=== PATIENT | female | born 1985 | race Caucasian/White ===

== ENCOUNTER → 2019-11-05 13:16 | Outpatient (CLI) | payer OTHER, SELFPAY ==
--- NOTE | ~2019-11-05 | US_ITS ---
EXAMINATION: US transvaginal EXAM DATE: 11/05/2019 13:45 INDICATION: Bilateral adnexal pain. TECHNIQUE: Pelvic transvaginal sonogram was performed. There are multiple grayscale and Doppler imag es available for interpretation. There is no prior study for comparison. FINDINGS: Uterus measures 7.4 x 4.1 x 5.6 cm, and is morphologically normal. Endometrial stripe rose sures 4 mm, within normal limits. There is no free pelvic fluid. Right adnexa: The ovary measures 3.3 x 2.3 x 2.8 cm and is morphologically normal. Ovarian vascular f low confirmed. Left adnexa: The ovary measures 1.4 x 1.2 x 1.5 cm and is morphologically normal. Ovarian vascular fl ow confirmed. IMPRESSION: Unremarkable pelvic ultrasound exam. Reviewed, dictated and finalized at location B. K ATTENDANT
== END ==
PROVIDERS: PCP Family Medicine; Visit Provider Family Medicine
DX: R10.2 Pelvic and perineal pain (principal)
CPT/HCPCS: 76830

== ENCOUNTER 2020-04-24 07:13 | Outpatient (CLI) | payer OTHER, SELFPAY ==
--- NOTE | ~2020-04-24 | CT_ITS ---
EXAMINATION: CT abdomen pelvis w con INDICATION: Right lower quadrant pain, history of appendectomy TECHNIQUE: Computed tomographic images of the abdomen and pelvis were obtained after the administrati on of 100 cc of Omnipaque 350 intravenous contrast. The dose-length product (DLP) was 315.90 mGy-cm. Automated exposure control and iterative reconstruction technique were employed. COMPARISON: None available FINDINGS: Minimal dependent atelectasis is present in the lung bases. The heart size is normal. Bilat eral breast implants are noted. The liver, spleen, pancreas, gallbladder, and adrenal glands are norm al. The kidneys are unremarkable. No pathologically enlarged abdominal or pelvic lymph nodes are iden tified. There is no free intraperitoneal gas or evidence of bowel obstruction. The appendix is not id entified, consistent with history of appendectomy. There is a large volume of stool in the ascending and transverse colon. There is also some solid material in the nondilated distal small bowel. The vis ualized osseous structures are unremarkable. IMPRESSION: 1. Constipation. Reviewed, dictated and finalized at location A. IMPRESSION: 1. Constipation.
[2020-04-24 07:37] LABS: Estimated Glomerular Filt Rate > 60
== END 2020-04-24 07:14 | disposition home or self-care (01) ==
PROVIDERS: PCP Family Medicine; Visit Provider Family Medicine
DX: R10.31 Right lower quadrant pain (principal); K59.00 Constipation, unspecified
CPT/HCPCS: 36415; 74177; Q9967

== ENCOUNTER 2020-06-14 01:46 | Outpatient (CLI) | payer OTHER, SELFPAY ==
[2020-06-14 18:40] LABS: SARS-CoV-2 RNA PCR Negative
== END 2020-06-14 01:47 | disposition home or self-care (01) ==
LOC: ANHCOVIDDT 01:46
PROVIDERS: PCP Family Medicine; Visit Provider Internal Medicine Gastroenterology
DX: Z01.812 Encounter for preprocedural laboratory examination (principal); Z20.828 Contact with and (suspected) exposure to other viral communicable diseases
CPT/HCPCS: 87635; C9803; U0003

== ENCOUNTER 2020-06-16 01:45 | Day surgery (SDC) | payer OTHER, SELFPAY ==
[2020-06-08 13:30] VITALS: BMI 24.3
[2020-06-16 08:12] VITALS: BP 135/81; PULSE 92; RESP 18; TEMP 37.2; O2SAT 100
[2020-06-16] MEDS: LACTATED RINGERS 1,000 ML 150 ML IV CONT (08:23)
--- NOTE | 2020-06-16 08:23 | P.PNAN_ITS ---
Anes - Initial Pre Proc Eval Procedure: Operation Date: 06/16/20 09:30 Proposed Procedures p Colonoscopy - Jeffery Reina MD Date/Time: 06/16/20 08:23 Surgeon: Jeffery Reina MD Pre Op Diagnosis: Change In Bowel Habits Patient Data Age: 35 Gender: F Height: 5 ft 6 in Weight: 67.8 kg Last Vital Signs Temp 98.9 F 06/16/20 08:12 Pulse 92 06/16/20 08:12 Resp 18 06/16/20 08:12 BP 135/81 06/16/20 08:12 Pulse Ox 100 06/16/20 08:12 Allergies Allergy/AdvReac Type Severity Reaction Status Date / Time No Known Allergies Allergy Unknown Verified 06/16/20 08:11 Home Medications Medication Instructions Recorded Confirmed Type amlodipine 10 mg tablet 10 mg PO DAILY #90 tablet 04/18/20 06/08/20 Rx dicyclomine 10 mg capsule 10 mg PO TID PRN #30 cap 04/18/20 06/08/20 Rx ergocalciferol (vitamin D2) 50,000 unit PO WEEKLY 06/08/20 06/08/20 History [Vitamin D2] hydroxyzine HCl 25 mg PO HS 06/08/20 06/08/20 History Patient hx anesthesia problems: post op nausea/vomiting Family hx anesthesia problems: none PMFSH Social History Social History Smoking status: Never smoker Second hand tobacco smoke exposure: No Alcohol intake: former Drinks per week: 1 Substance use: never Substance use type: does not use, former substance user, marijuana, crack/cocaine, heroin, amphetamines, hallucinogens, tranquilizers, sedatives, opiates, painkillers, club/fashion designer drugs, inhalants, IV drugs, methamphetamine, prescription drug, unknown and other Living arrangements: with family Spiritual care concerns: No Anes - Eval Final PreProcedure Day of Procedure 06/16/20 08:23 Patient weight: normal Heart: regular rate and rhythm Lungs: clear to auscultation Airway: Mallampati scale class II Neurological: alert and oriented Last oral intake: >/= 8 hours ASA classification: II Emergent: no Anesthetic plan: proceed Anesthesia type and monitoring: general GIVS and standard monitoring Informed Consent: The patient's anesthetic plan and its attendant risks and benefits were discussed with the patient/family/POA. Questions were solicited and answers provided to the satisfaction of the patient/family/POA.
--- NOTE | 2020-06-16 08:28 | P.HP_ITS ---
History of Present Illness History of Present Illness Consent: Risks, benefits, and alternatives have been discussed and questions answered. Patient agrees to proceed with procedure. Chief complaint: Change In Bowel Habits Narrative: Kate Solis is a 35 year old female who has had Intermittent rectal bleeding and change in bowel habits. [facility] Social History Social History Smoking status: Never smoker Second hand tobacco smoke exposure: No Alcohol intake: former Drinks per week: 1 Substance use: never Substance use type: does not use, former substance user, marijuana, crack/cocaine, heroin, amphetamines, hallucinogens, tranquilizers, sedatives, opiates, painkillers, club/experience designer drugs, inhalants, IV drugs, methamphetamine, prescription drug, unknown and other Living arrangements: with family Spiritual care concerns: No Meds Home Medications and Allergies Home Medications Medication Instructions Recorded Confirmed Type amlodipine 10 mg tablet 10 mg PO DAILY #90 tablet 04/18/20 06/08/20 Rx dicyclomine 10 mg capsule 10 mg PO TID PRN #30 cap 04/18/20 06/08/20 Rx ergocalciferol (vitamin D2) 50,000 unit PO WEEKLY 06/08/20 06/08/20 History [Vitamin D2] hydroxyzine HCl 25 mg PO HS 06/08/20 06/08/20 History Allergies Allergy/AdvReac Type Severity Reaction Status Date / Time No Known Allergies Allergy Unknown Verified 06/16/20 08:11 Vital Signs Vital Signs - 24 hr 06/16/20 08:12 Temperature 37.2 C Pulse Rate 92 Respiratory Rate 18 Blood Pressure 135/81 Pulse Oximetry 100 Exam Resp: Auscultation: clear to auscultation bilaterally Cardio: Rate: regular rate Rhythm: regular rhythm GI: GI Palp: Yes Soft to palpation and No Tenderness to palpation present (GI) Assessment and Plan Assessment and plan (1) Change in bowel habits: Code(s): R19.4 - Change in bowel habit Status: Acute Assessment and Plan: Colonoscopy with possible biopsy or polypectomy or cautery or injection of substances.
[2020-06-16 08:49] VITALS: BP 103/54; PULSE 81; RESP 18; O2SAT 100
[2020-06-16 08:59] VITALS: BP 106/61; PULSE 73; RESP 21; O2SAT 100
[2020-06-16 09:09] VITALS: BP 106/61; PULSE 73; RESP 21; O2SAT 100
== END 2020-06-16 09:26 | disposition home or self-care (01) ==
PROVIDERS: PCP Family Medicine; Visit Provider Internal Medicine Gastroenterology
PROC: 0DJD8ZZ Inspection of Lower Intestinal Tract, Via Natural or Artificial Opening Endoscopic (ICD-10-PCS; CPT 45378; principal; 2020-06-16 09:30)
DX: R19.7 Diarrhea, unspecified (principal)
CPT/HCPCS: 45380; 87635; 88305; C9803; J2704; J7120; U0003

== ENCOUNTER 2020-10-22 06:38 | Emergency (ER) | payer OTHER, SELFPAY ==
[2020-10-22] VITALS (34 sets, daily range): BP systolic 121–144; BP diastolic 70–87; PULSE 77–105; RESP 13–20; TEMP 36.6; O2SAT 97–100
--- NOTE | ~2020-10-22 | XR_ITS ---
EXAMINATION: XR chest 2V DATE: 10/22/2020 07:03 INDICATION: Left-sided chest pain TECHNIQUE: PA and lateral views of the chest were obtained. COMPARISON: Chest radiograph dated 10/01/2013 FINDINGS: The lungs remain clear with no focal airspace opacities, pulmonary edema, pleural effusion or pneumot horax. The cardiomediastinal silhouette is normal. Lateral breast implants. Visualized bones are unre markable. IMPRESSION: 1. No acute cardiopulmonary disease. Reviewed, dictated and finalized at location A. HR DIVERSITY
--- NOTE | 2020-10-22 06:42 | ECG_ITS ---
Measurements Intervals [place] Rate: 93 P: 13 [place]: 154 QRS: 81 QRSD: 79 T: 35 QT: 338 QTc: 422 Interpretive Statements SINUS RHYTHM NONSPECIFIC ST & T-WAVE ABNORMALITY- ANTEROLAT/INF LEADS BASELINE ARTIFACT- II, III, AVR, AVL, AVF BORDERLINE ECG Electronically Signed On 10-22-2020 6:54:56 JOB COUNSELOR by Mark Clay D.O.
[2020-10-22 07:03] LABS: Basophils Percent Auto 0.4 % (0.2-1.2); Eosinophils Absolute Auto 0.1 K/mm3 (0-0.3); Eosinophils Percent Auto 1.1 % (0-4.4); Hematocrit 43.4 % (37.0-47.0); Hemoglobin 14.4 g/dL (12.0-15.0); Immature Granulocyte Absolute 0.03 K/mm3 (0.00-0.031); Immature Granulocyte Percent A 0.4 % (0-0.5); Lymphocytes Absolute Auto 2.12 K/mm3 (0.9-3.2); Lymphocytes Percent Auto 27.9 % (18.3-44.2); Mean Corpuscular HGB Conc 33.2 g/dl (32-36); Mean Corpuscular Volume 84.3 fl (80-100); Mean Platelet Volume 10.1 fl (7.4-10.4); Monocytes Absolute Auto 0.6 K/mm3 (0.1-0.6); Monocytes Percent Auto 7.5 % (2.6-8.5); Neutrophils Absolute Auto 4.8 K/mm3 (1.3-6.7); Neutrophils Percent Auto 62.7 % (45.5-73.1); Platelet Count Result 282 k/mm3 (150-375); Red Blood Count 5.15 M/mm3 (4.2-5.4); Red Cell Distribution Width 12.2 % (11.5-14.5); White Blood Count 7.6 K/mm3 (4.5-10.0)
[2020-10-22 07:11] LABS: Prothrombin Time 13.3 Seconds (11.1-14.7)
[2020-10-22 07:12] LABS: Partial Thromboplastin Time 30.1 SECONDS (22.3-36.8)
[2020-10-22 07:14] LABS: Anion Gap 5 mmol/L (8-16); Blood Urea Nitrogen 14 mg/dL (7-17); Calcium 8.9 mg/dL (8.4-10.2); Carbon Dioxide 24 mmol/L (22-30); Chloride 109 mmol/L (98-107); Estimated CRCL calculation 80 ml/min; Estimated Glomerular Filt Rate > 60; Glucose 100 mg/dL (65-105); Potassium 3.3 mmol/L (3.4-5.0); Sodium 138 mmol/L (137-145)
[2020-10-22 07:26] LABS: Troponin I < 0.012 ng/mL (0.000-0.034)
[2020-10-22 07:31] LABS: D Dimer 0.27 ug/mL (<0.48)
--- NOTE | 2020-10-22 07:37 | ED.CHESTPAIN ---
HPI - Chest Pain General Chief Complaint: Chest Pain Stated Complaint: chest pain since 8pm Time Seen by Provider: 10/22/20 07:05 Source: patient Mode of arrival: ambulatory Limitations: no limitations History of Present Illness HPI narrative: Patient is a 35 year old female with history of anxiety and hypertension who presens for evaluation of left lower lateral chest pain. She states this pain started 8 pm last night. She describes pain as dull ache and it is intermittent. She reports it radiates up to left shoulder. She has not noticed any exacerbating factors. She tried taking tylenol, blood pressure medication and hydroxyzine with out relief. She reports her pain is 2/10. She denies associated nausea, vomiting, fever, cough, shortness of breath or urinary symptoms. She reports intermittent left upper abdominal pain . Related Data Home Medications Medication Instructions Recorded Confirmed ergocalciferol (vitamin D2) 50,000 unit PO WEEKLY 06/08/20 06/08/20 [Vitamin D2] hydroxyzine HCl 25 mg PO HS 06/08/20 06/08/20 Allergies Allergy/AdvReac Type Severity Reaction Status Date / Time No Known Allergies Allergy Unknown Verified 08/02/20 16:04 Review of Systems Review of Systems: All systems reviewed & are unremarkable except as noted in HPI and below PMFSH Past Medical History Medical History (Updated 10/22/20 @ 11:26 by Gogo Hart MD) Hypertension Surgical History Surgical History (Updated 10/22/20 @ 07:43 by Gogo Hart MD) Hx of appendectomy Social History Social History Smoking status: Never smoker Second hand tobacco smoke exposure: No Alcohol intake: former Drinks per week: 1 Substance use: never Substance use type: does not use, former substance user, marijuana, crack/cocaine, heroin, amphetamines, hallucinogens, tranquilizers, sedatives, opiates, painkillers, club/interactive designer drugs, inhalants, IV drugs, methamphetamine, prescription drug, unknown and other Spiritual care concerns: No Exam Const: General: no acute distress and alert Orientation/consciousness: patient oriented x3 HENMT: Head: normocephalic and atraumatic Face and sinus: face symmetric Mouth: Yes Normal oral and palatal mucosa present, Yes lip normal, Yes oropharynx normal and Yes moist mucous membranes Eyes: EOM: EOMs intact bilaterally Chest: Chest palpation & inspection: normal inspection of the chest and no tenderness Resp: Effort & Inspection: normal respiratory effort and no retractions Auscultation: clear to auscultation bilaterally Cardio: Rate: regular rate Rhythm: regular rhythm Heart sounds: no murmurs GI: GI Palp: Yes Soft to palpation, No Tenderness to palpation present (GI) and No Guarding due to palpation present (GI) Auscultation: normal bowel sounds Skin: General skin exam: normal color Rashes: no rashes Neuro: General: patient oriented x3 and moves all extremities Course Reevaluation(s) Reevaluation #1: I Discussed patient that labs are unremarkable. Her symptoms are atypical and not anginal . She will be treated for UTI. Date: 10/22/20 Time: 11:22 Vital Signs Vital signs: Vital Signs Temperature 97.9 F 10/22/20 06:43 Pulse Rate 105 H 10/22/20 06:43 Respiratory Rate 17 10/22/20 06:43 Blood Pressure 144/86 H 10/22/20 06:43 Pulse Oximetry 100 10/22/20 06:43 Temperature 97.9 F 10/22/20 06:43 Pulse Rate 87 10/22/20 11:17 Respiratory Rate 16 10/22/20 11:17 Blood Pressure 125/80 10/22/20 11:16 Pulse Oximetry 99 10/22/20 11:17 MDM - Chest Pain Lab Data Attestation: I reviewed the patient's lab results. Result diagrams: 10/22/20 06:54 10/22/20 06:54 Labs: Lab Results 10/22/20 10/22/20 10/22/20 Range/Units 06:54 06:54 06:54 WBC 7.6 (4.5-10.0) K/mm3 RBC 5.15 (4.2-5.4) M/mm3 Hgb 14.4 (12.0-15.0) g/dL Hct 43.4
[2020-10-22 08:12] LABS: Add Urine Microscopic? YES; Appearance Urine Clear (Clear); Bacteria Urine Trace /hpf; Bilirubin Urine Negative (Negative); Blood Urine Negative (Negative); Color Urine Colorless (Yellow); Glucose Urine UA Negative (Negative); Ketones Urine Negative (Negative); Leukocyte Esterase Ur 2+ LEU/UL (Negative); Mucus Urine Rare /lpf; Nitrate Urine Negative (Negative); Protein Urine Negative (Negative); RBC Urine 0-2 /hpf (0-2); Specific Grav Ur 1.008 (1.001-1.035); Squamous Epithelial Cell Urine Occasional /hpf (Few); Urobilinogen Urine Negative mg/dL (<2.0)
[2020-10-22 10:05] LABS: Troponin I < 0.012 ng/mL (0.000-0.034)
== END 2020-10-22 11:57 | disposition home or self-care (01) ==
PROVIDERS: Emergency Medicine; Emergency Provider General Practice; PCP Family Medicine
DX: R07.89 Other chest pain (principal); N39.0 Urinary tract infection, site not specified; I10 Essential (primary) hypertension; R94.31 Abnormal electrocardiogram [ECG] [EKG]
CPT/HCPCS: 36415; 71046; 80048; 81001; 81025; 84484; 85025; 85380; 85610; 85730; 87086; 93005; 99284

== ENCOUNTER 2021-03-20 13:00 | Outpatient (RCR) | payer OTHER, SELFPAY ==
--- NOTE | 2021-02-20 16:34 | PTOPEVAL ---
INITIAL PHYSICAL THERAPY EVALUATION AND PLAN OF CARE Thank you for referring Kate Solis to [facility].? Kate is scheduled to be seen for physical therapy? 1x/week for 5 weeks. Please review, sign, date and return this plan of care TARAH. I agree with and certify that the following plan of care is medically necessary. Referring Physician Date Admitting Provider: Attending Provider: Jayshree Morales MD Referring Provider: *PT Outpatient Evaluation Start: 02/20/21 14:46 Freq: Status: Active Protocol: Document 02/20/21 14:40 ÁNGEL (Rec: 02/20/21 16:32 ÁNGEL [email or web address]) Therapy Assessment Status Assessment Status Assessment Status Evaluation Outpatient Past Medical History Past Medical History Source of Past Medical History Family/Significant Other Neurological History Hx Neurological Disorders No Significant History Cardiovascular History Hx Hypertension Yes Respiratory History Hx Bronchitis Yes Gastrointestinal History Hx Appendectomy Yes Hx Hemorrhoids Yes Hx Irritable Bowel Yes Genitourinary History Hx Genitourinary Disorders No Significant History Musculoskeletal History Hx Fractures Yes: LT WRIST Hematological History Hx Hematological Disorders No Significant History Endocrine History Hx Endocrine Disorders No Significant History HEENT History Hx HEENT Disorders No Significant History Integumentary History Hx Skin Disorders No Significant History Reproductive History Hx Other Reproductive Disorders Yes: CURRENTLY ON DEPO PROVERA INJECTION, BILATERAL BREAST AUGMENTATION Psychosocial History Hx Anxiety Yes Pain History History of Any Previous or Ongoing No Significant History Instance of Pain Anesthesia History Hx Post-Op Nausea/Vomiting Yes Evaluation Information Problem Diagnosis pelvic floor pain Onset earlier in 2020 Subjective Information Kate reports no injury, Query Text:As Reported By Patient/ reason for pelvic floor pain. Family Notices discomfort pain from pelvic floor when sitting at times, also when lying down - tends to lie on R side. of son 04/09/19 - 8 lbs. No difficulty with labor and delivery - induced and there was some tearing. Was given valium suppositories - has used them twice. Discomfort present with palpation by OB
--- NOTE | 2021-03-20 14:54 | PTOPEVAL ---
PHYSICAL THERAPY DISCHARGE SUMMARY Thank you for referring Kate Solis to [facility].? Kate has been seen in PT x 5 visits. Goals set have been met and she is ready to continue on her home with HEP. I agree with Kate's discharge from PT. Referring Physician Date Admitting Provider: Attending Provider: Jayshree Morales MD Referring Provider: Therapy Assessment Status Assessment Status Assessment Status Discharge Evaluation Information Problem Diagnosis pelvic floor pain Subjective Information Kate states that she is Query Text:As Reported By Patient/ doing meditation at home and Family has encorporated butterfly positioning for reducing pelvic floor pain. She states that she may have overdone the pelvic floor strengthening exercises with her regular work out activities as she is having some low level vaginal pain. Urinary leakage with jump jacks has decreased significantly and no leakage with cough or sneeze. Pain Assessment Timing of Pain Assessment Timing of Pain Assessment Assessment Pain Scale Pain Scale Used Numeric (1 - 10) Self Report Pain Assessment Pelvis Reported Pain Level 2 Pain Description Aching Lowest Pain Intensity 0 Greatest Pain Intensity 2 Pelvic Health Evaluation Pelvic Floor Assessment Permission Received for External/ Yes Internal Perineal Exam Sustained Levator Ani Strength 4/5 Quick Levator Ani Contraction in 15 9 Seconds Rehab Teaching Rehab Teaching Teaching Topic Rehab Teaching Topic Components Exercise,Home Program As Pertains To Technique Recipient Patient Learning Preferences Audio,Demonstration,Discussion ,One-on-One Instruction,Visual ,Written Barriers to Learning None Readiness to Learn Excellent Response Returns Demonstration, Verbalizes Understanding Method Discussion,Handout,One-On-One Instruction,Written Instruction Additional Rehab Teaching Comments reinforced to continue to incorporate levator ani strengthening with workout PT Clinical Summary Clinical Summary Protocol: PTEVCODE PT Clinical Summary Vulvar Pain Func
== END 2021-05-07 11:46 | disposition home or self-care (01) ==
LOC: ANHPT 13:00
PROVIDERS: PCP Family Medicine; Visit Provider Obstetrics & Gynecology Gynecology
DX: R10.2 Pelvic and perineal pain (principal)
CPT/HCPCS: 97110; 97140; 97162

== ENCOUNTER → 2021-10-22 08:55 | Outpatient (CLI) | payer BC, SELFPAY ==
--- NOTE | ~2021-10-22 | US_ITS ---
US breast BI complete INDICATION: Possible implant rupture. No current patient problems. TECHNIQUE: Dedicated bilateral complaint breast ultrasound COMPARISON: Ultrasound dated 06/23/2019 FINDINGS: The breasts are there are bilateral breast implants with normal heterogeneous appearance. N o discontinuity of the capsule. The breasts are composed of normal heterogeneous echotexture without focal solid or cystic mass. If there is continuing concern for implant rupture, further evaluation wi th MRI is recommended. IMPRESSION: 1: Normal bilateral breast ultrasound. BI-RADS CATEGORY 1 - NEGATIVE Reviewed, dictated and finalized at location A. AL WORK SPECIALIST
== END ==
DX: Z41.1 Encounter for cosmetic surgery (principal)
CPT/HCPCS: 76641

== ENCOUNTER 2022-01-10 07:42 | Outpatient (CLI) | payer BC, SELFPAY ==
--- NOTE | ~2022-01-10 | US_ITS ---
EXAMINATION: US abdomen complete EXAM DATE: 01/10/2022 08:50 INDICATION: R79.89 - Other specified abnormal findings of blood chemi... TECHNIQUE: Multiple grayscale and Doppler images of the complete abdomen were obtained (by a technolo gist who performed the scan) and subsequently reviewed. There is no prior study for comparison. FINDINGS: The abdominal aorta is normal in caliber. Visualized portion IVC is patent. The pancreatic head a nd body are normal in appearance. The pancreatic tail is not visualized. The liver has normal echogenicity and contour. There are no focal liver lesions identified. There is no evidence of intrahepatic biliary duct dilation. Portal venous flow was seen in the hepatopedal , normal direction and has normal Doppler waveform. Common bile duct measures 3 mm, which is normal. The gallbladder wall is normal in thickness, with ex pected amount of distention. No sonographic evidence of pericholecystic fluid. There is no cholelit hiases. Technologist performing exam reports patient did not demonstrate sonographic Zuluaga's sign. Please note that this sign is less reliable in patients who have received pain medication. Right kidney: There is normal contour and echogenicity. It measures 11.0 x 4.9 x 4.7 centimeters. There are no focal renal lesions identified. There is no hydronephrosis. Left kidney: There is normal contour and echogenicity. It measures 11.7 x 5.4 x 5.6 centimeters. T here are no focal renal lesions identified. There is no hydronephrosis. The spleen measures 9.5 centimeters and is morphologically normal. IMPRESSION: 1. Unremarkable complete abdominal ultrasound exam. Reviewed, dictated and finalized at location A.
== END 2022-01-10 07:43 | disposition home or self-care (01) ==
LOC: ANHIMG 07:46
PROVIDERS: PCP Family Medicine; Visit Provider Physician Assistant
DX: R79.89 Other specified abnormal findings of blood chemistry (principal)
CPT/HCPCS: 76700

== ENCOUNTER → 2022-02-11 10:39 | Outpatient (CLI) | payer BC, SELFPAY ==
--- NOTE | ~2022-02-11 | US_ITS ---
EXAMINATION: US transvaginal DATE: 02/11/2022 11:16 INDICATION: Pelvic pain Comparison:Ultrasound dated 11/05/2019 TECHNIQUE: Multiple endovaginal sonographic images of the pelvis performed. FINDINGS: The uterus measures 7.1 x 3.7 x 4.5 cm. The endometrial complex measures 2 mm. The right ovary measures 2.2 x 1.7 x 2.1 cm and the left ovary measures 2.7 x 1.5 x 2.2 cm. There ar e small follicles in each ovary. Normal doppler signal in both ovaries. There is no free fluid in the pelvis. There are no abnormal masses seen on either side. IMPRESSION: 1. Unremarkable pelvic ultrasound. Reviewed, dictated and finalized at location A.
== END ==
PROVIDERS: PCP Family Medicine; Visit Provider Nurse Practitioner
DX: R10.2 Pelvic and perineal pain (principal)
CPT/HCPCS: 76830

== ENCOUNTER 2022-10-29 09:12 | Outpatient (CLI) | payer BC, SELFPAY ==
[2022-10-29 09:47] LABS: Appearance Urine Slightly Cloudy (Clear); Bilirubin Urine Negative (Negative); Blood Urine Negative (Negative); Color Urine Yellow (Yellow); Glucose Urine UA Negative (Negative); Ketones Urine Negative (Negative); Leukocyte Esterase Ur 3+ LEU/UL (Negative); Nitrate Urine Negative (Negative); Protein Urine Trace mg/dL (Negative); Specific Grav Ur 1.025 (1.001-1.035); Urobilinogen Urine 0.2 mg/dL (<2.0)
[2022-10-29 09:50] LABS: Bacteria Urine Trace /hpf; Mucus Urine Rare /lpf; Squamous Epithelial Cell Urine Many /hpf (Few); WBC Urine 31-50 /hpf
[2022-10-29 09:57] LABS: Add Urine Microscopic? YES
[2022-10-29 10:04] LABS: Alanine Aminotransferase 28 U/L (6-35); Albumin Level 4.7 g/dL (3.5-5.1); Alkaline Phosphatase 58 U/L (38-126); Anion Gap 5 mmol/L (8-16); Aspartate Amino Transferase 27 U/L (14-36); Bilirubin,Total 0.6 mg/dL (0.2-1.3); Blood Urea Nitrogen 14 mg/dL (7-17); CRP < 0.5 mg/dL (<1.0); Calcium 8.9 mg/dL (8.4-10.2); Carbon Dioxide 25 mmol/L (22-30); Chloride 105 mmol/L (98-107); Estimated Glomerular Filt Rate > 60; Glucose 90 mg/dL (65-110); Potassium 3.9 mmol/L (3.4-5.0); Sodium 135 mmol/L (137-145)
[2022-10-29 10:09] LABS: Erythrocyte Sedimentation Rate 12 mm/hr (0-20)
[2022-11-02 16:08] LABS: Gliadin AB, IgG <1.0 U/mL (<15.0); TTG IGA AB <1.0 U/mL (<15.0)
== END 2022-10-29 09:13 | disposition home or self-care (01) ==
LOC: ANHLAB 09:14
PROVIDERS: PCP Family Medicine; Visit Provider Nurse Practitioner
DX: R10.13 Epigastric pain (principal); R11.0 Nausea; K92.1 Melena; K21.9 Gastro-esophageal reflux disease without esophagitis
CPT/HCPCS: 36415; 80053; 81001; 83516; 85652; 86140; 86255; 87086; 87088

== ENCOUNTER 2022-11-04 05:12 | Emergency (ER) | payer BC, SELFPAY ==
[2022-11-04] VITALS (35 sets, daily range): BP systolic 117–157; BP diastolic 73–96; PULSE 69–99; RESP 10–26; TEMP 36.8; O2SAT 93–100
--- NOTE | ~2022-11-04 | XR_ITS ---
Clinical Indication: Chest pain PA and lateral views of the chest: Comparison: 10/22/2020 Findings: The lungs are clear, without evidence of focal consolidation or pleural effusion. Cardiome diastinal silhouette is within normal limits. Bones and soft tissues are unremarkable. Impression: Normal chest. Reviewed, dictated and finalized at [facility]. Y RIDER Impression: Normal chest.
--- NOTE | 2022-11-04 05:13 | ECG_ITS ---
Measurements Intervals [place] Rate: 102 P: 60 [place]: 149 QRS: 73 QRSD: 86 T: 35 QT: 339 QTc: 443 Interpretive Statements SINUS TACHYCARDIA NONSPECIFIC ST & T-WAVE ABNORMALITY ABNORMAL RHYTHM ECG COMPARED TO ECG 10/22/2020 06:47:25 NO SIGNIFICANT DIFFERENCE Electronically Signed On 11-04-2022 12:09:[address] COMMISSIONER by Jamie Mishra M.D.
[2022-11-04 05:29] LABS: Basophils Percent Auto 0.3 % (0.2-1.2); Eosinophils Absolute Auto 0.2 K/mm3 (0-0.3); Eosinophils Percent Auto 1.9 % (0-4.4); Hematocrit 43.7 % (37.0-47.0); Hemoglobin 14.5 g/dL (12.0-15.0); Immature Granulocyte Absolute 0.03 K/mm3 (0.00-0.031); Immature Granulocyte Percent A 0.4 % (0-0.5); Lymphocytes Absolute Auto 2.48 K/mm3 (0.9-3.2); Lymphocytes Percent Auto 31.8 % (18.3-44.2); Mean Corpuscular HGB Conc 33.2 g/dl (32-36); Mean Corpuscular Volume 84.4 fl (80-100); Mean Platelet Volume 9.8 fl (7.4-10.4); Monocytes Absolute Auto 0.6 K/mm3 (0.1-0.6); Monocytes Percent Auto 7.6 % (2.6-8.5); Neutrophils Absolute Auto 4.5 K/mm3 (1.3-6.7); Platelet Count Result 314 k/mm3 (150-375); Red Blood Count 5.18 M/mm3 (4.2-5.4); Red Cell Distribution Width 12.3 % (11.5-14.5); White Blood Count 7.8 K/mm3 (4.5-10.0)
[2022-11-04 05:40] LABS: Alanine Aminotransferase 25 U/L (6-35); Albumin Level 5.1 g/dL (3.5-5.1); Alkaline Phosphatase 59 U/L (38-126); Anion Gap 10 mmol/L (8-16); Aspartate Amino Transferase 26 U/L (14-36); Bilirubin,Total 0.6 mg/dL (0.2-1.3); Blood Urea Nitrogen 12 mg/dL (7-17); Calcium 9.4 mg/dL (8.4-10.2); Carbon Dioxide 23 mmol/L (22-30); Chloride 106 mmol/L (98-107); Estimated CRCL calculation 78 ml/min; Estimated Glomerular Filt Rate > 60; Glucose 115 mg/dL (65-110); Lipase 148 U/L (23-300); Potassium 3.4 mmol/L (3.4-5.0); Sodium 139 mmol/L (137-145)
[2022-11-04 05:44] LABS: INR 1.1; Partial Thromboplastin Time 30.7 SECONDS (22.3-36.8); Prothrombin Time 13.9 Seconds (11.1-14.7)
[2022-11-04 05:52] LABS: Troponin I < 0.012 ng/mL (0.000-0.034)
--- NOTE | 2022-11-04 06:00 | ED.GENADULT ---
HPI - General Adult General Chief complaint: Chest Pain <Baljeet Still MD - Last Filed: 11/04/22 06:09> Stated complaint: chest pain that radiates into shoulder and arm <Baljeet Still MD - Last Filed: 11/04/22 06:09> Time Seen by Provider: 11/04/22 05:26 <Baljeet Still MD - Last Filed: 11/04/22 06:09> History of Present Illness HPI narrative: Patient a 37-year-old female who presents emerged department with chief complaint of chest pain. Patient reports that she has pain that starts in her left shoulder goes up into her neck and then extends down into her upper chest. The patient states the pain is sharp reports the pain is worse with movement and worse with palpation. Patient denies fever denies shortness of breath. <Baljeet Still MD - Last Filed: 11/04/22 06:09> Patient a 37-year-old female who presents to the emergency department with chief complaint of chest pain. Patient reports that she has pain that starts in her left shoulder goes up into her neck and then extends down into her upper chest. The patient states the pain is sharp reports the pain is worse with movement and worse with palpation. Patient denies fever denies shortness of breath. <David Quiñones MD - Last Filed: 11/04/22 18:04> Related Data Home medications: Home Medications Medication Instructions Recorded Confirmed ergocalciferol (vitamin D2) 1,250 50,000 unit PO WEEKLY 06/08/20 10/29/22 mcg (50,000 unit) capsule (Vitamin D2) hydroxyzine HCl 25 mg tablet 25 mg PO HS 06/08/20 10/29/22 spironolactone 100 mg tablet 100 mg PO DAILY 06/05/21 10/29/22 medroxyprogesterone 150 mg/mL 150 mg IM [id number] 12/27/21 10/29/22 intramuscular suspension (Depo-Provera) <Baljeet Still MD - Last Filed: 11/04/22 06:09> Allergies/adverse reactions: Allergies Allergy/AdvReac Type Severity Reaction Status Date / Time No Known Allergies Allergy Unknown Verified 11/04/22 05:13 <Baljeet Still MD - Last Filed: 11/04/22 06:09> Review of Systems Review of Systems: A 10 system review of systems was completed on the patient and is negative except for what is stated in the HPI. Nursing and ancillary documentation was reviewed. <Baljeet Still MD - Last Filed: 11/04/22 06:09> PMFSH Past Medical History Medical History: Medical History Abdominal bloating Constipation Dark stools Epigastric burning sensation GERD (gastroesophageal reflux disease) Hematochezia Hypertension Nausea Rectal pain <Baljeet Still MD - Last Filed: 11/04/22 06:09> Surgical History Surgical History: Surgical History Hx of appendectomy <Baljeet Still MD - Last Filed: 11/04/22 06:09> Family History Family History: Family History Mother Hypertension Hyperlipidemia Father Hypertension Hyperlipidemia Grandparent Hyperlipidemia Hypertension Skin cancer Esophageal cancer Grandparent Arthritis <Baljeet Still MD - Last Filed: 11/04/22 06:09> Social History Social History: Social History Smoking status: Never smoker Second hand tobacco smoke exposure: No Alcohol intake: former Substance use: never Substance use type: does not use Living arrangements: with family Spiritual care concerns: No <Baljeet Still MD - Last Filed: 11/04/22 06:09> Exam Narrative: GENERAL: Well-appearing, well-nourished, and in no acute distress. HEAD: Normocephalic, atraumatic. EYES: PERRLA and EOMI. ENT: Nares clear, no rhinorrhea or epistaxis. Mucous membranes moist. NECK: Supple. Tenderness to palpation in the left neck and left shoulder CHEST: Cl
[2022-11-04] MEDS: KETOROLAC 15 MG/ML VIAL (*BKC) IV PUSH (06:28)
[2022-11-04 09:43] LABS: Troponin I < 0.012 ng/mL (0.000-0.034)
== END 2022-11-04 10:09 | disposition home or self-care (01) ==
PROVIDERS: Emergency Provider Emergency Medicine; PCP Family Medicine
DX: R07.9 Chest pain, unspecified (principal); I10 Essential (primary) hypertension; K21.9 Gastro-esophageal reflux disease without esophagitis; R00.0 Tachycardia, unspecified; R94.31 Abnormal electrocardiogram [ECG] [EKG]
CPT/HCPCS: 36415; 71046; 80053; 83690; 84484; 85025; 85610; 85730; 93005; 96374; 99284; J1885

== ENCOUNTER 2022-11-30 01:46 | Emergency (ER) | payer BC, SELFPAY ==
[2022-11-30] VITALS (17 sets, daily range): BP systolic 121–143; BP diastolic 59–80; PULSE 100–125; RESP 15–22; O2SAT 96–100
--- NOTE | ~2022-11-30 | XR_ITS ---
EXAMINATION: XR chest 1V portable DATE: 11/30/2022 03:36 INDICATION: Chest pain TECHNIQUE: frontal view of the chest was obtained. COMPARISON: Chest radiograph dated 11/04/[address] dated 11/30/22 FINDINGS: The lungs are clear with no focal airspace opacities, pulmonary edema, pleural effusion or pneumothor ax. The cardiomediastinal silhouette is normal. Visualized bones and soft tissues are unremarkable. IMPRESSION: 1. Normal chest radiograph. Reviewed, dictated and finalized at location A. AND BLOWER OPERATOR IMPRESSION: 1. Normal chest radiograph.
--- NOTE | ~2022-11-30 | CT_ITS ---
EXAMINATION: CTA chest PE protocol DATE: 11/30/2022 03:43 INDICATION: Midsternal chest pain, tachycardia and nausea TECHNIQUE: Computed tomography (CT) pulmonary angiogram of the chest was performed with 100 mL Omnipa que-350 intravenous contrast. Additional 3D reconstructions utilizing coronal maximum intensity proje ction (MIP) were performed. Automated exposure control and iterative reconstruction technique were em ployed. The dose-length product was 219.63 mGy-cm. COMPARISON: None FINDINGS: Good contrast opacification of the pulmonary arteries. There is mild streak artifact from dense contr ast in the superior vena cava and right atrium. Mild scattered respiratory motion artifact. Together this only mildly decreases sensitivity in some of the smaller subsegmental pulmonary arteries. No pul monary embolism. No pneumonia, pulmonary edema or other pulmonary infiltrates. No pleural effusion or pneumothorax. Heart size is normal. No pericardial effusion. Thoracic aorta is normal in caliber wit h no dissection. No pathologically enlarged thoracic lymphadenopathy. Visualized upper abdomen and luisa ulises are unremarkable. IMPRESSION: 1. No pulmonary embolism or other acute cardiopulmonary disease. Reviewed, dictated and finalized at location A. ROUTER
--- NOTE | 2022-11-30 02:00 | ECG_ITS ---
Measurements Intervals [place] Rate: 102 P: 43 [place]: 158 QRS: 71 QRSD: 82 T: 40 QT: 324 QTc: 423 Interpretive Statements SINUS TACHYCARDIA BASELINE ARTIFACT- II, III, AVF BORDERLINE ECG COMPARED TO ECG 11/04/2022 05:20:28 NO SIGNIFICANT CHANGES Electronically Signed On 11-30-2022 6:57:30 THRASHER FEEDER by Mark Clay D.O.
[2022-11-30 02:52] LABS: Basophils Percent Auto 0.5 % (0.2-1.2); Eosinophils Absolute Auto 0.2 K/mm3 (0-0.3); Eosinophils Percent Auto 2.6 % (0-4.4); Hematocrit 39.1 % (37.0-47.0); Immature Granulocyte Absolute 0.02 K/mm3 (0.00-0.031); Immature Granulocyte Percent A 0.3 % (0-0.5); Lymphocytes Absolute Auto 2.33 K/mm3 (0.9-3.2); Lymphocytes Percent Auto 35.9 % (18.3-44.2); Mean Corpuscular HGB Conc 33.2 g/dl (32-36); Mean Corpuscular Hemoglobin 27.9 pg (26-34); Mean Corpuscular Volume 83.9 fl (80-100); Mean Platelet Volume 10.3 fl (7.4-10.4); Monocytes Absolute Auto 0.6 K/mm3 (0.1-0.6); Monocytes Percent Auto 9.1 % (2.6-8.5); Neutrophils Absolute Auto 3.4 K/mm3 (1.3-6.7); Neutrophils Percent Auto 51.6 % (45.5-73.1); Platelet Count Result 280 k/mm3 (150-375); Red Blood Count 4.66 M/mm3 (4.2-5.4); Red Cell Distribution Width 12.6 % (11.5-14.5); White Blood Count 6.5 K/mm3 (4.5-10.0)
[2022-11-30 03:02] LABS: INR 1.1; Prothrombin Time 13.5 Seconds (11.1-14.7)
[2022-11-30 03:03] LABS: Partial Thromboplastin Time 30.7 SECONDS (22.3-36.8)
[2022-11-30 03:05] LABS: Alanine Aminotransferase 21 U/L (6-35); Albumin Level 4.6 g/dL (3.5-5.1); Alkaline Phosphatase 51 U/L (38-126); Anion Gap 8 mmol/L (8-16); Aspartate Amino Transferase 24 U/L (14-36); Bilirubin,Total 0.4 mg/dL (0.2-1.3); Blood Urea Nitrogen 21 mg/dL (7-17); Calcium 8.9 mg/dL (8.4-10.2); Carbon Dioxide 21 mmol/L (22-30); Chloride 106 mmol/L (98-107); Estimated CRCL calculation 70 ml/min; Estimated Glomerular Filt Rate > 60; Glucose 106 mg/dL (65-110); Lipase 206 U/L (23-300); Magnesium 2.1 mg/dL (1.6-2.3); Potassium 3.5 mmol/L (3.4-5.0); Sodium 135 mmol/L (137-145)
[2022-11-30 03:06] LABS: Lactic Acid Reflex 0.8 mmol/L (0.7-2.0)
[2022-11-30 03:14] LABS: Influenza A QL RT-PCR Negative (Negative); Influenza B QL RT-PCR Negative (Negative); SARS-CoV-2 RNA PCR Negative
[2022-11-30 03:17] LABS: NT Pro B Type Natriuretic Pept < 20 pg/mL (19.9-100); Troponin I < 0.012 ng/mL (0.000-0.034)
--- NOTE | 2022-11-30 03:18 | ED.GENADULT ---
HPI - General Adult General Chief complaint: Chest Pain Stated complaint: chest pain Time Seen by Provider: 11/30/22 01:53 History of Present Illness HPI narrative: Patient is a 37-year-old female who presents the emergency department with chief complaint of chest pain. Patient reports that this evening around 12:30 AM she had sudden onset of chest discomfort. The patient states that sharp reports that she felt as though her heart was racing and reports that was not improved by anything. The patient reports that this is different from any other episode she has had before in the patient reports she has history of hypertension and reflux. Patient also reports history of anxiety Related Data Home Medications Medication Instructions Recorded Confirmed ergocalciferol (vitamin D2) 1,250 50,000 unit PO DIRECTED 06/08/20 11/22/22 mcg (50,000 unit) capsule (Vitamin D2) hydroxyzine HCl 25 mg tablet 25 mg PO HS 06/08/20 11/22/22 spironolactone 100 mg tablet 100 mg PO DAILY 06/05/21 11/22/22 medroxyprogesterone 150 mg/mL 150 mg IM [id number] 12/27/21 11/22/22 intramuscular suspension (Depo-Provera) ondansetron HCl 4 mg tablet mg 11/30/22 Allergies Allergy/AdvReac Type Severity Reaction Status Date / Time No Known Allergies Allergy Unknown Verified 11/30/22 02:01 Review of Systems Review of Systems: A 10 system review of systems was completed on the patient and is negative except for what is stated in the HPI. Nursing and ancillary documentation was reviewed. [facility] Past Medical History Medical History Abdominal bloating Constipation Dark stools Epigastric burning sensation GERD (gastroesophageal reflux disease) Hematochezia Hypertension Nausea Rectal pain Surgical History Surgical History Hx of appendectomy Family History Family History Mother Hypertension Hyperlipidemia Father Hypertension Hyperlipidemia Grandparent Hyperlipidemia Hypertension Skin cancer Esophageal cancer Grandparent Arthritis Social History Social History Smoking status: Never smoker Second hand tobacco smoke exposure: No Alcohol intake: former Substance use: current Substance use type: marijuana Last use: every other week-naveenkyjeniffer Living arrangements: with family Spiritual care concerns: No Exam Narrative: GENERAL: Well-appearing, well-nourished, and in no acute distress. HEAD: Normocephalic, atraumatic. EYES: PERRLA and EOMI. ENT: Nares clear, no rhinorrhea or epistaxis. Mucous membranes moist. NECK: Supple. CHEST: Clear to auscultation. No respiratory distress. HEART: Tachycardic rate and rhythm. No murmur heard. Normal peripheral pulses. ABDOMEN: Soft, nontender, nondistended, normal active bowel sounds. EXTREMITIES: Normal range of motion. No edema. SKIN: Warm, dry, no rash. NEURO: No focal deficits. Alert and oriented x3. PSYCH: Normal mood and affect. Course Vital Signs Vital signs: Vital Signs Pulse Rate 125 H 11/30/22 01:54 Respiratory Rate 18 11/30/22 01:54 Blood Pressure 132/68 11/30/22 01:54 Pulse Oximetry 100 11/30/22 01:54 Pulse Rate 107 H 11/30/22 06:00 Respiratory Rate 17 11/30/22 06:00 Blood Pressure 123/68 11/30/22 06:00 Pulse Oximetry 97 11/30/22 06:00 Oxygen Delivery Room Air 11/30/22 02:01 Medical Decision Making [facility] Narrative Medical decision making narrative: EKG is sinus tachycardia rate of [address] elevation or ST depression Differential diagnosis includes pulmonary embolism, ACS, NSTEMI, palpitations, anxiety, atypical chest pain Laboratory studies were obtained which showed a normal troponin electrolytes were within normal limits liver enzymes and lipase were als
[2022-11-30 04:04] LABS: Appearance Urine Clear (Clear); Bacteria Urine None Seen /hpf; Bilirubin Urine Negative (Negative); Blood Urine Negative (Negative); Color Urine Yellow (Yellow); Glucose Urine UA Negative (Negative); Ketones Urine Negative (Negative); Leukocyte Esterase Ur 2+ LEU/UL (Negative); Nitrate Urine Negative (Negative); Non Pathogenic Casts 0-2; Protein Urine Negative (Negative); RBC Urine 0-2 /hpf (0-2); Specific Grav Ur 1.013 (1.001-1.035); Squamous Epithelial Cell Urine None seen /hpf (Few); Urobilinogen Urine 0.2 mg/dL (<2.0); pH Urine 6.5 (5.0-9.0)
[2022-11-30] MEDS: SODIUM CHLORIDE 0.9% IV 1,000 ML 999 ML IV CONT (04:07)
[2022-11-30] MEDS: LORazepam INJ (*CRX) 2 MG/ML VIAL 1 MG IV PUSH (04:08)
[2022-11-30] MEDS: PANTOPRAZOLE SODIUM IV 40 MG VIAL IV PUSH (04:08)
[2022-11-30 04:09] LABS: Add Urine Microscopic? YES
[2022-11-30 05:25] LABS: Troponin I < 0.012 ng/mL (0.000-0.034)
== END 2022-11-30 06:55 | disposition home or self-care (01) ==
PROVIDERS: Emergency Provider Emergency Medicine; PCP Family Medicine
DX: N39.0 Urinary tract infection, site not specified (principal); R07.9 Chest pain, unspecified; R00.2 Palpitations; Z20.822 Contact with and (suspected) exposure to COVID-19; K21.9 Gastro-esophageal reflux disease without esophagitis; I10 Essential (primary) hypertension
CPT/HCPCS: 36415; 71045; 71275; 80053; 81001; 81025; 83605; 83690; 83735; 83880; 84484; 85025; 85610; 85730; 87086; 87088; 87636; 93005; 96361; 96374; 96375; 99284; C9113; J2060; J7030; Q9967

== ENCOUNTER 2022-12-02 01:01 | Day surgery (SDC) | payer BC, SELFPAY ==
[2022-11-22 14:26] VITALS: BMI 24.8
--- NOTE | 2022-12-02 11:07 | PM.HPGS ---
History of Present Illness History of Present Illness Consent: Risks, benefits, and alternatives have been discussed and questions answered. Patient agrees to proceed with procedure. Chief complaint: Hematochezia, Epigastric Pain Narrative: Kate Solis is a 37 year old female who has been having symptoms of intermittent nausea for now around 2 months and now she has noticed some epigastric burning sensation.? She feels like her stomach is ?inflamed?.? She states she eats to help the burning and the nausea as it does help somewhat.? She has been using Zofran 4 mg intermittently which helps somewhat.? She denies any hematemesis.? She denies any dysphagia or odynophagia.? She does continue to feel bloating and gassy.? She does report she is having a bowel movement almost daily that is typically soft and formed and occasionally she will have a loose stool following.? Denies chronically loose stools.? She had 1 episode where she had bright red blood in her stools with admixed with mucus has not seen since-she also had another episode where she had rectal pain that radiated to her suprapubic area.? she had a colonoscopy few years ago was normal. Review of Systems Review of Systems: All systems reviewed & are unremarkable except as noted in HPI and below PMFSH Past Medical History Medical History Abdominal bloating Constipation Dark stools Epigastric burning sensation GERD (gastroesophageal reflux disease) Hematochezia Hypertension Nausea Rectal pain Surgical History Surgical History Hx of appendectomy Family History Family History Mother Hypertension Hyperlipidemia Father Hypertension Hyperlipidemia Grandparent Hyperlipidemia Hypertension Skin cancer Esophageal cancer Grandparent Arthritis Social History Social History Smoking status: Never smoker Second hand tobacco smoke exposure: No Alcohol intake: former Substance use: current Substance use type: marijuana Last use: every other week-enrike Living arrangements: with family Spiritual care concerns: No Meds Home Medications and Allergies Home Medications Medication Instructions Recorded Confirmed Type amlodipine 10 mg tablet 10 mg PO DAILY #90 tabs 04/18/20 11/22/22 Rx ergocalciferol (vitamin D2) 1,250 50,000 unit PO DIRECTED 06/08/20 11/22/22 History mcg (50,000 unit) capsule (Vitamin D2) hydroxyzine HCl 25 mg tablet 25 mg PO HS 06/08/20 11/22/22 History spironolactone 100 mg tablet 100 mg PO DAILY 06/05/21 11/22/22 History medroxyprogesterone 150 mg/mL 150 mg IM [id number] 12/27/21 11/22/22 History intramuscular suspension (Depo-Provera) famotidine 40 mg tablet 40 mg PO QHS #30 tabs 10/29/22 11/22/22 Rx omeprazole 40 mg capsule,delayed See Rx Instructions .Route 11/25/22 12/02/22 Rx release .COMPLEX #90 caps cephalexin 500 mg capsule 500 mg PO Q12H 7 days #14 caps 11/30/22 12/02/22 Rx ondansetron HCl 4 mg tablet 4 mg PO PRN PRN Nausea 11/30/22 12/02/22 History Allergies Allergy/AdvReac Type Severity Reaction Status Date / Time No Known Allergies Allergy Unknown Verified 12/02/22 11:14 Exam Const: General: alert Orientation/consciousness: patient oriented x3 Resp: Auscultation: clear to auscultation bilaterally Cardio: Rhythm: regular rhythm GI: GI Palp: Yes Soft to palpation and No Tenderness to palpation present (GI) Neuro: General: patient oriented x3 Assessment and Plan Assessment and plan (1) GERD (gastroesophageal reflux disease): Code(s): K21.9 - Gastro-esophageal reflux disease without esophagitis Status: Acute Assessment and Plan: EGD with possible biopsy or dilatation or cautery. (2) Hematochezia: Code(s): K92.1 - Melena Sta
[2022-12-02 11:15] VITALS: BP 135/87; PULSE 85; RESP 17; TEMP 36.3; O2SAT 100
--- NOTE | 2022-12-02 11:17 | WPDANESEPPF ---
Anes - Initial Pre Proc Eval Procedure: Operation Date: 12/02/22 12:30 Proposed Procedures p Flexible Sigmoidoscopy - Jeffery Reina MD s Esophagogastroduodenoscopy - Jeffery Reina MD Date/Time: 12/02/22 11:17 Surgeon: Jeffery Reina MD Pre Op Diagnosis: Hematochezia, Epigastric Pain Patient Data Age: 37 Gender: F Height: 1.68 m Weight: 68.4 kg Last Vital Signs Temp 36.3 C L 12/02/22 11:15 Pulse 85 12/02/22 11:15 Resp 17 12/02/22 11:15 BP 135/87 12/02/22 11:15 Pulse Ox 100 12/02/22 11:15 O2 Del Method Room Air 12/02/22 11:15 Allergies Allergy/AdvReac Type Severity Reaction Status Date / Time No Known Allergies Allergy Unknown Verified 12/02/22 11:14 Home Medications Medication Instructions Recorded Confirmed Type amlodipine 10 mg tablet 10 mg PO DAILY #90 tabs 04/18/20 11/22/22 Rx ergocalciferol (vitamin D2) 1,250 50,000 unit PO DIRECTED 06/08/20 11/22/22 History mcg (50,000 unit) capsule (Vitamin D2) hydroxyzine HCl 25 mg tablet 25 mg PO HS 06/08/20 11/22/22 History spironolactone 100 mg tablet 100 mg PO DAILY 06/05/21 11/22/22 History medroxyprogesterone 150 mg/mL 150 mg IM [id number] 12/27/21 11/22/22 History intramuscular suspension (Depo-Provera) famotidine 40 mg tablet 40 mg PO QHS #30 tabs 10/29/22 11/22/22 Rx omeprazole 40 mg capsule,delayed See Rx Instructions .Route 11/25/22 12/02/22 Rx release .COMPLEX #90 caps cephalexin 500 mg capsule 500 mg PO Q12H 7 days #14 caps 11/30/22 12/02/22 Rx ondansetron HCl 4 mg tablet 4 mg PO PRN PRN Nausea 11/30/22 12/02/22 History Patient hx anesthesia problems: none Family hx anesthesia problems: none Results Review: All pre-operative results and documents have been reviewed as part of the pre-operative evaluation. [facility] Past Medical History Medical History Abdominal bloating Constipation Dark stools Epigastric burning sensation GERD (gastroesophageal reflux disease) Hematochezia Hypertension Nausea Rectal pain Surgical History Surgical History Hx of appendectomy Family History Family History Mother Hypertension Hyperlipidemia Father Hypertension Hyperlipidemia Grandparent Hyperlipidemia Hypertension Skin cancer Esophageal cancer Grandparent Arthritis Social History Social History Smoking status: Never smoker Second hand tobacco smoke exposure: No Alcohol intake: former Substance use: current Substance use type: marijuana Last use: every other week-gummies Living arrangements: with family Spiritual care concerns: No Anes - Eval Final PreProcedure Day of Procedure 12/02/22 11:17 Patient weight: normal Heart: regular rate and rhythm Lungs: clear to auscultation Airway: Mallampati scale class II Neurological: alert and oriented Last oral intake: >/= 8 hours ASA classification: II Emergent: no Anesthetic plan: proceed Anesthesia type and monitoring: general GIVS and standard monitoring Results Review: All pre-operative results and documents have been reviewed as part of the pre-operative evaluation. Informed Consent: The patient's anesthetic plan and its attendant risks and benefits were discussed with the patient/family/POA. Questions were solicited and answers provided to the satisfaction of the patient/family/POA.
[2022-12-02] MEDS: LACTATED RINGERS 1,000 ML 150 ML IV CONT (11:22)
--- NOTE | 2022-12-02 11:55 | SUR.OPER ---
Addendum entered by Ani Luna RN 12/02/22 12:07: Flexible sigmoidoscopy not Colonoscopy Original Note: EGD start 1154 end 1156, Colonoscopy start 1202 end 1206
[2022-12-02 12:09] VITALS: BP 122/82; PULSE 71; RESP 22; O2SAT 100
[2022-12-02 12:19] VITALS: BP 137/98; PULSE 65; RESP 18; O2SAT 100
[2022-12-02 12:39] VITALS: BP 130/84; PULSE 61; RESP 21; O2SAT 100
== END 2022-12-02 12:43 | disposition home or self-care (01) ==
PROVIDERS: PCP Family Medicine; Visit Provider Internal Medicine Gastroenterology
PROC: 0DJD8ZZ Inspection of Lower Intestinal Tract, Via Natural or Artificial Opening Endoscopic (ICD-10-PCS; CPT 45330; principal; 2022-12-02 12:30)
PROC: 0DJ08ZZ Inspection of Upper Intestinal Tract, Via Natural or Artificial Opening Endoscopic (ICD-10-PCS; CPT 43235; 2022-12-02 12:30)
DX: K92.1 Melena (principal); K59.00 Constipation, unspecified; K21.9 Gastro-esophageal reflux disease without esophagitis; I10 Essential (primary) hypertension; K64.8 Other hemorrhoids
CPT/HCPCS: 45330; 43235; J2704; J7120

== ENCOUNTER 2022-12-25 19:07 | Emergency (ER) | payer BC, SELFPAY ==
--- NOTE | ~2022-12-25 | XR_ITS ---
EXAM: XR ankle LT min 3V DATE: 12/25/2022 19:47 HISTORY: lateral ankle and cuboid tenderness . COMPARISON: None available. FINDINGS: Normal mineralization. No fracture or dislocation. No lytic or blastic lesion. Joint space s are maintained. No erosion or periosteal change. Lateral soft tissue swelling. IMPRESSION: No acute osseous finding in the left ankle. Reviewed, dictated and finalized at location K.
[2022-12-25 19:16] VITALS: BP 149/90; PULSE 88; RESP 18; TEMP 36.2; O2SAT 100
--- NOTE | 2022-12-25 19:38 | ED.LOWEXIN ---
HPI - Extremity Injury (Lower) General Chief Complaint: Extremity Injury, Lower <ESTEBAN Olivier Last Filed: 12/26/22 00:48> Stated Complaint: ankle pain <Alyssa Han PA-C - Last Filed: 12/26/22 00:48> Time Seen by Provider: 12/25/22 19:14 <Alyssa Han PA-C - Last Filed: 12/26/22 00:48> History of Present Illness HPI Narrative: 37 year old female here for evaluation of left ankle pain and swelling after she landed with the foot in eversion. States she was carrying several items down the steps when she tripped. States she felt a snap in her ankle. She was able to bear weight directly afterwards but now states it is too painful. No other injuries sustained in the accident. She has not taken any medicine for pain prior to arrival. <ESTEBAN Olivier Last Filed: 12/26/22 00:48> Related Data Home Medications: Home Medications Medication Instructions Recorded Confirmed ergocalciferol (vitamin D2) 1,250 50,000 unit PO DIRECTED 06/08/20 11/22/22 mcg (50,000 unit) capsule (Vitamin D2) hydroxyzine HCl 25 mg tablet 25 mg PO HS 06/08/20 11/22/22 spironolactone 100 mg tablet 100 mg PO DAILY 06/05/21 11/22/22 medroxyprogesterone 150 mg/mL 150 mg IM [id number] 12/27/21 11/22/22 intramuscular suspension (Depo-Provera) <ESTEBAN Olivier Last Filed: 12/26/22 00:48> Allergies/Adverse Reactions: Allergies Allergy/AdvReac Type Severity Reaction Status Date / Time No Known Allergies Allergy Unknown Verified 12/02/22 11:14 <ESTEBAN Olivier Last Filed: 12/26/22 00:48> Review of Systems Review of Systems: Gen.: Denies fevers or chills Eyes: Denies eye pain or visual change ENT: Denies congestion Respiratory: Denies shortness of breath or cough CV: Denies chest pain or palpitations GI: Denies abdominal pain nausea, emesis or diarrhea denies burning, urgency, frequency or hematuria Musculoskeletal: Reports left ankle pain Neuro: Denies numbness, tingling, weakness or focal weakness Skin: Denies rash Except as documented, all other systems reviewed and negative <Alyssa Han PA-C - Last Filed: 12/26/22 00:48> PMFSH Past Medical History Medical History: Medical History Abdominal bloating Constipation Dark stools Epigastric burning sensation GERD (gastroesophageal reflux disease) Hematochezia Hypertension Nausea Rectal pain <Alyssa Han PA-C - Last Filed: 12/26/22 00:48> Surgical History Surgical History: Surgical History Hx of appendectomy <Alyssa Han PA-C - Last Filed: 12/26/22 00:48> Family History Family History: Family History Mother Hypertension Hyperlipidemia Father Hypertension Hyperlipidemia Grandparent Hyperlipidemia Hypertension Skin cancer Esophageal cancer Grandparent Arthritis <Alyssa Han PA-C - Last Filed: 12/26/22 00:48> Social History Social History: Social History Smoking status: Never smoker Second hand tobacco smoke exposure: No Alcohol intake: former Substance use: current Substance use type: marijuana Last use: every other week-[facility] Living arrangements: with family Spiritual care concerns: No <Alyssa Han PA-C - Last Filed: 12/26/22 00:48> Exam Narrative: APPEARANCE: Well appearing, no pain in distress, well-nourished. Head: Normocephalic and atraumatic. EYES: PERRLA/EOMI, conjunctivae clear NOSE: No nasal drainage EARS: External ear normal in appearance THROAT: Oropharynx is clear. Mucous membranes are moist. NECK: Supple. No adenopathy, no masses. RESPIRATORY: Airway patent, respirations nonlabored. Clear to auscultation bilate
[2022-12-25] MEDS: HYDROcodone/acetaminophen (*CRX) 5-325 MG TABLET 1 TAB PO (19:39)
== END 2022-12-25 20:27 | disposition home or self-care (01) ==
PROVIDERS: Emergency Provider Physician Assistant; PCP Family Medicine
DX: S93.402A Sprain of unspecified ligament of left ankle, initial encounter (principal); K21.9 Gastro-esophageal reflux disease without esophagitis; I10 Essential (primary) hypertension; W18.40XA Slipping, tripping and stumbling without falling, unspecified, initial encounter
CPT/HCPCS: 73610; 99283; A9270

== ENCOUNTER 2023-06-21 09:10 | Emergency (ER) | payer BC, SELFPAY ==
[2023-06-21] VITALS (18 sets, daily range): BP systolic 110–128; BP diastolic 72–86; PULSE 64–87; RESP 14–20; TEMP 36.7; O2SAT 96–100
--- NOTE | ~2023-06-21 | US_ITS ---
EXAMINATION: US right upper quadrant DATE: 06/21/2023 10:55 INDICATION: Transaminitis TECHNIQUE: Multiple grayscale and Doppler ultrasound images of the abdomen were obtained. COMPARISON: 01/10/2022 FINDINGS: The head and body of the pancreas are normal. The pancreatic tail is obscured by bowel gas. Bowel gas partially obscures visualization of the left hepatic lobe. The liver is otherwise normal w ith normal echogenicity and echotexture. No surface nodularity. Normal hepatopetal flow in the main p ortal vein. The gallbladder is normal with no abnormal wall thickening, pericholecystic fluid or ston es. The normal common bile duct measures 2 mm. There was no sonographic Zuluaga sign. IMPRESSION: 1. No sonographic correlate for the patient's symptoms. Reviewed, dictated and finalized at location F.
--- NOTE | ~2023-06-21 | XR_ITS ---
EXAMINATION: XR chest 2V DATE: 06/21/2023 09:58 INDICATION: Chest pain TECHNIQUE: PA and lateral views of the chest are obtained. COMPARISON: 11/30/2022 FINDINGS: The lungs are free of acute opacities. No pleural effusion or pneumothorax. The cardiomedia stinal silhouette is normal. The visualized bones and soft tissues are unremarkable. IMPRESSION: 1. No acute cardiopulmonary abnormality. Reviewed, dictated and finalized at location F.
--- NOTE | 2023-06-21 02:33 | ECG_ITS ---
Measurements Intervals [place] Rate: 75 P: 40 ME: 137 QRS: 82 QRSD: 81 T: 48 QT: 352 QTc: 395 Interpretive Statements SINUS RHYTHM COMPARED TO ECG 11/30/2022 02:33:09 SINUS RHYTHM NOW PRESENT Electronically Signed On 06-24-2023 15:45:07 CDT by Tre Cox M.D.
[2023-06-21] MEDS: ASPIRIN 81 MG CHEWABLE TABLET 324 MG PO (09:35)
[2023-06-21 09:39] LABS: Basophils Percent Auto 0.3 % (0.2-1.2); Eosinophils Absolute Auto 0.1 K/mm3 (0-0.3); Hematocrit 44.5 % (37.0-47.0); Hemoglobin 14.9 g/dL (12.0-15.0); Immature Granulocyte Absolute 0.02 K/mm3 (0.00-0.031); Immature Granulocyte Percent A 0.3 % (0-0.5); Lymphocytes Absolute Auto 1.91 K/mm3 (0.9-3.2); Lymphocytes Percent Auto 26.7 % (18.3-44.2); Mean Corpuscular HGB Conc 33.5 g/dl (32-36); Mean Corpuscular Hemoglobin 27.3 pg (26-34); Mean Corpuscular Volume 81.5 fl (80-100); Mean Platelet Volume 10.2 fl (7.4-10.4); Monocytes Absolute Auto 0.4 K/mm3 (0.1-0.6); Monocytes Percent Auto 5.7 % (2.6-8.5); Neutrophils Absolute Auto 4.7 K/mm3 (1.3-6.7); Platelet Count Result 361 k/mm3 (150-375); Red Blood Count 5.46 M/mm3 (4.2-5.4); Red Cell Distribution Width 11.9 % (11.5-14.5); White Blood Count 7.2 K/mm3 (4.5-10.0)
[2023-06-21 09:49] LABS: Alanine Aminotransferase 66 U/L (6-35); Albumin Level 4.6 g/dL (3.5-5.1); Alkaline Phosphatase 67 U/L (38-126); Anion Gap 10 mmol/L (8-16); Aspartate Amino Transferase 41 U/L (14-36); Bilirubin,Total 0.6 mg/dL (0.2-1.3); Blood Urea Nitrogen 14 mg/dL (7-17); Calcium 9.4 mg/dL (8.4-10.2); Carbon Dioxide 20 mmol/L (22-30); Chloride 107 mmol/L (98-107); Estimated CRCL calculation 91 ml/min; Estimated Glomerular Filt Rate > 60; Glucose 101 mg/dL (65-110); Lipase 158 U/L (23-300); Prothrombin Time 13.7 Seconds (11.1-14.7); Sodium 137 mmol/L (137-145)
[2023-06-21 09:50] LABS: Partial Thromboplastin Time 30.7 SECONDS (22.3-36.8)
[2023-06-21 10:01] LABS: Troponin I < 0.012 ng/mL (0.000-0.034)
--- NOTE | 2023-06-21 10:25 | ED.CHESTPAIN ---
HPI - Chest Pain General Chief Complaint: Chest Pain Stated Complaint: cp Time Seen by Provider: 06/21/23 09:23 Source: patient Mode of arrival: ambulatory Limitations: no limitations History of Present Illness HPI narrative: This is a 38-year-old female that presents to the emergency department for epigastric pain and burning chest pain. Ongoing over the last 3 days. Associated with nausea. Reports worsening last night after eating pizza. She does take Pepcid for reflux. She took this with little relief. She does report recently finishing an antibiotic. Denies fevers, vomiting, cough, shortness of breath, or lower extremity edema. Related Data Home Medications Medication Instructions Recorded Confirmed ergocalciferol (vitamin D2) 1,250 50,000 unit PO DIRECTED 06/08/20 03/13/23 mcg (50,000 unit) capsule (Vitamin D2) hydroxyzine HCl 25 mg tablet 25 mg PO HS 06/08/20 03/13/23 medroxyprogesterone 150 mg/mL 150 mg IM [id number] 12/27/21 03/13/23 intramuscular suspension (Depo-Provera) metoprolol tartrate 25 mg tablet 25 mg PO BID 06/11/23 Allergies Allergy/AdvReac Type Severity Reaction Status Date / Time No Known Allergies Allergy Unknown Verified 06/21/23 09:30 Review of Systems Review of Systems: CONSTITUTIONAL: Denies fever CARDIOVASCULAR: Reports chest pain. Denies edema. RESPIRATORY: Denies cough or dyspnea. GASTROINTESTINAL: Reports abdominal pain, nausea. Denies vomiting, or diarrhea. All systems reviewed & are unremarkable except as noted in HPI and below PMFSH Past Medical History Medical History Abdominal bloating Constipation Dark stools Epigastric burning sensation GERD (gastroesophageal reflux disease) Hematochezia History of breast implant removal Hypertension Nausea Rectal pain Surgical History Surgical History H/O breast augmentation (~2013) Hx of appendectomy Family History Family History Mother Hypertension Hyperlipidemia Father Hypertension Hyperlipidemia Grandparent Hyperlipidemia Hypertension Skin cancer Esophageal cancer Grandparent Arthritis Social History Social History Smoking status: Never smoker Second hand tobacco smoke exposure: No Alcohol intake: current Alcohol use details: 3 per year Substance use: current Substance use type: marijuana Last use: every other week-gummies Lack of Transportation: No Lack of Food: Never True Current Housing: I Have Housing Concerned About Future Housing: No Difficulty Paying Gas/Electric Bills: No Difficulty Paying for Meds: No Currently Unemployed: No Education: Bachelor's Degree Difficulty w/ Childcare or Family Care: No Living arrangements: with family Occupation/Education: occupation 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 HEAD: Normocephalic, atraumatic. EYES: EOMI. CHEST: Clear to auscultation. No respiratory distress. No wheezes rales or rhonchi HEART: Regular rate and rhythm. No murmur heard. Normal peripheral pulses. ABDOMEN: Soft, nontender, nondistended, normal active bowel sounds. EXTREMITIES: Normal range of motion. No edema. SKIN: Warm, dry, no rash. NEURO: No focal deficits. Alert and oriented x3. PSYCH: Normal mood and affect Course Course Emergency Course: Patient was updated on workup and agrees with plan of care Vital Signs Vital signs: Vital Signs Pulse Rate 79 06/21/23 09:20 Respiratory Rate 20 06/21/23 09:20 Pulse Oximetry 98 06/21/23 09:20 Temperature 98.1 F 06/21/23 09:25 Pulse Rate 77 06/21/23 13:42 Respiratory Rate 16 06/21/23 13:42 Blood Press
[2023-06-21] MEDS: PANTOPRAZOLE SODIUM IV 40 MG VIAL IV PUSH (10:32)
[2023-06-21 13:10] LABS: Troponin I < 0.012 ng/mL (0.000-0.034)
== END 2023-06-21 14:25 | disposition home or self-care (01) ==
PROVIDERS: Emergency Medicine; Emergency Provider Physician Assistant; PCP Family Medicine
DX: R07.9 Chest pain, unspecified (principal); I10 Essential (primary) hypertension; K21.9 Gastro-esophageal reflux disease without esophagitis
CPT/HCPCS: 36415; 71046; 76705; 80053; 83690; 84484; 85025; 85610; 85730; 93005; 96374; 99284; A9270; C9113

== ENCOUNTER 2023-08-18 01:25 | Day surgery (SDC) | payer BC, SELFPAY ==
[2023-08-06 15:23] VITALS: BMI 24.5
--- NOTE | 2023-08-06 15:47 | PC.NURSE ---
Report to the Outpatient Waiting Room, entrance under the green pavilion located off [facility], at time _0630 on date _08/18/23 . Planned Procedure Time: ___30 . Time changes happen often and if your time is changed the preop area will call you the afternoon before. - You and your visitor will be asked to self-screen and do not enter if you have any COVID symptoms. - A mask is optional within the hospital at this time. Patients may have clear liquids (water, carbonated beverages, clear teas, apple juice) until 3 hours prior to surgery with a maximum of 20 ounces. - No food from midnight until time of surgery - Take the following medications with a SIP of water the morning of surgery: _METHIMAZOLE, PROPANOLOL, ONDANSETRON IF NEEDED FOR NAUSEA DO NOT STOP ANY OF YOUR OTHER PRESCRIPTION MEDICATIONS PRIOR TO SURGERY ?EXCEPT THE FOLLOWING Medications to discontinue per physician NONE Date to take last dose___N/A Please no make-up, nail canadian, hairspray, perfume, deodorant, or body powder the day of surgery. No jewelry (including any body piercings) or valuables the day of surgery, leave them at home. Please take a shower or bath the night before, or the morning of, surgery with an antibacterial soap. Wear comfortable, loose fitting clothing. Children are encouraged to wear pajamas. - Jewelry must be removed prior to entering the operating room. Rings and piercings that are not removed may be cut off. - The hospital will not accept responsibility for valuables. - Please leave all valuables, including medications, at home the day of surgery. If you are going home after surgery, a licensed concrete mixing truck driver must drive you home. - NO public transportation without another adult if you receive anesthesia. - We recommend that an adult stay with you for 24 hours following discharge. - We also recommend that you do not drive, make important decision, drink alcoholic beverages, or take any drugs that were not prescribed by your health care provider for at least 24 hours after your discharge time. Follow any additional instructions given to you from your surgeon. If you or anyone in your household have experienced Covid symptoms in the past week, please notify your surgeon or the nurse liaison at the phone number below for possible testing. Telephone instructions given to ___MIRELLA and asked if any additional questions and then verbalized understanding. Patient advised to call surgeon office or pre surgery nurse liaison [phone] if any additional questions.
[2023-08-18] VITALS (10 sets, daily range): BP systolic 106–128; BP diastolic 57–84; PULSE 61–97; RESP 11–17; TEMP 36.1–36.5; O2SAT 98–100
[2023-08-18] MEDS: ACETAMINOPHEN 500 MG TABLET 1000 MG PO (06:37)
[2023-08-18] MEDS: KETOROLAC 15 MG/ML VIAL (*BKC) IV PUSH (07:24)
--- NOTE | 2023-08-18 07:28 | WPDHPUPDATE1 ---
History and Physical Update Update Date/Time: 08/18/23 07:28 History and Physical has been reviewed, including an updated exam of the patient. There are NO changes in the patient's condition. Risks, benefits, and alternatives have been discussed and questions answered. Patient agrees to proceed with procedure.
--- NOTE | 2023-08-18 07:28 | PM.IMHP ---
H&P: HPI History of Present Illness Date/Time: 08/18/23 07:28 Chief Complaint: requests sterilization Narrative: 38 yo who has completed her childbearing and wishes to proceed with sterilization. Reviewed procedure of laparoscopic salpingectomies and patient agrees to proceed. Risks of infection, bleeding, injury to internal organs, and failure with increased risks of ectopic or IUP reviewed. Review of Systems Review of Systems: not repeated day of surgery; patient states no changes in status PMFSH Past Medical History Medical History (Updated 08/18/23 @ 07:33 by Jayshree Morales MD) Anxiety Constipation GERD (gastroesophageal reflux disease) History of breast implant removal Hypertension (normal spontaneous vaginal delivery) Surgical History Surgical History (Updated 08/18/23 @ 07:32 by Jayshree Morales MD) H/O breast augmentation (~2013) History of hysteroscopy Hx of appendectomy Family History Family History Mother Hypertension Hyperlipidemia Father Hypertension Hyperlipidemia Grandparent Hyperlipidemia Hypertension Skin cancer Esophageal cancer Grandparent Arthritis Social History Social History Smoking status: Never smoker Second hand tobacco smoke exposure: No Alcohol intake: never Alcohol use details: 3 per year Substance use: never Substance use type: marijuana Other substance usage details: OCCAS. 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 Spiritual care concerns: No Meds Home Medications and Allergies Home Medications Medication Instructions Recorded Confirmed Type ergocalciferol (vitamin D2) 1,250 50,000 unit PO DIRECTED 06/08/20 08/06/23 History mcg (50,000 unit) capsule (Vitamin D2) methimazole 5 mg tablet 5 mg PO DAILY #90 tabs 06/23/23 08/06/23 Rx propranolol 20 mg tablet 20 mg PO Q12H #180 tabs 06/23/23 08/06/23 Rx famotidine 40 mg tablet 40 mg PO QHS #30 tabs 07/14/23 08/06/23 Rx amlodipine 10 mg tablet 5 mg PO HS 08/06/23 08/06/23 History omeprazole 40 mg capsule,delayed See Rx Instructions .Route 08/06/23 08/06/23 History release .COMPLEX PRN Nausea And Vomiting ondansetron HCl 4 mg tablet See Rx Instructions .Route 08/06/23 08/06/23 History .COMPLEX PRN Nausea And Vomiting Allergies Allergy/AdvReac Type Severity Reaction Status Date / Time No Known Allergies Allergy Unknown Verified 08/18/23 06:30 Vital Signs Vital Signs - 24 hr 08/18/23 07:21 Temperature 97.7 F Pulse Rate 80 Respiratory Rate 16 Blood Pressure 128/84 Pulse Oximetry 99 Oxygen Delivery Room Air Exam Const: General: healthy appearing and alert Orientation/consciousness: patient oriented x3 Resp: Effort & Inspection: normal respiratory effort GI: GI Palp: Yes Soft to palpation, No Tenderness to palpation present (GI) and No Palpable mass present : External Female Exam: normal external appearance Speculum Exam - Vagina: normal appearance of the vagina and normal vaginal discharge Speculum Exam - Cervix: normal appearance of the cervix Bimanual exam- vagina & uterus: uterine size normal and consistency normal Bimanual Exam- Adnexa, other: normal adnexae and No adnexal tenderness Neuro: General: patient oriented x3 Assessment and Plan Assessment and plan (1) Encounter for sterilization: Code(s): Z30.2 - Encounter for sterilization Status: Acute Assess
--- NOTE | 2023-08-18 07:42 | WPDANESEPPF ---
Anes - Initial Pre Proc Eval Procedure: Operation Date: 08/18/23 08:30 Proposed Procedures p Bilateral Laparoscopic Salpingectomy - Jayshree Morales MD Date/Time: 08/18/23 07:42 Surgeon: Jayshree Morales MD Pre Op Diagnosis: desires sterilization Patient Data Age: 38 Gender: F Height: 1.7 m Weight: 70.7 kg Last Vital Signs Temp 36.5 C 08/18/23 07:21 Pulse 80 08/18/23 07:21 Resp 16 08/18/23 07:21 BP 128/84 08/18/23 07:21 Pulse Ox 99 08/18/23 07:21 O2 Del Method Room Air 08/18/23 07:21 Allergies Allergy/AdvReac Type Severity Reaction Status Date / Time No Known Allergies Allergy Unknown Verified 08/18/23 06:30 Home Medications Medication Instructions Recorded Confirmed Type ergocalciferol (vitamin D2) 1,250 50,000 unit PO DIRECTED 06/08/20 08/06/23 History mcg (50,000 unit) capsule (Vitamin D2) methimazole 5 mg tablet 5 mg PO DAILY #90 tabs 06/23/23 08/06/23 Rx propranolol 20 mg tablet 20 mg PO Q12H #180 tabs 06/23/23 08/06/23 Rx famotidine 40 mg tablet 40 mg PO QHS #30 tabs 07/14/23 08/06/23 Rx amlodipine 10 mg tablet 5 mg PO HS 08/06/23 08/06/23 History omeprazole 40 mg capsule,delayed See Rx Instructions .Route 08/06/23 08/06/23 History release .COMPLEX PRN Nausea And Vomiting ondansetron HCl 4 mg tablet See Rx Instructions .Route 08/06/23 08/06/23 History .COMPLEX PRN Nausea And Vomiting Patient hx anesthesia problems: none Family hx anesthesia problems: none Results Review: All pre-operative results and documents have been reviewed as part of the pre-operative evaluation. [facility] Past Medical History Medical History (Updated 08/18/23 @ 07:33 by Jayshree Morales MD) Anxiety Constipation GERD (gastroesophageal reflux disease) History of breast implant removal Hypertension (normal spontaneous vaginal delivery) Surgical History Surgical History (Updated 08/18/23 @ 07:32 by Jayshree Morales MD) H/O breast augmentation (~2013) History of hysteroscopy Hx of appendectomy Family History Family History Mother Hypertension Hyperlipidemia Father Hypertension Hyperlipidemia Grandparent Hyperlipidemia Hypertension Skin cancer Esophageal cancer Grandparent Arthritis Social History Social History Smoking status: Never smoker Second hand tobacco smoke exposure: No Alcohol intake: never Alcohol use details: 3 per year Substance use: never Substance use type: marijuana Other substance usage details: OCCAS. 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 Informed Consent: The patient's anesthetic plan and its attendant risks and benefits were discussed with the patient/family/POA. Questions were solicited and answers provided to the satisfaction of the patient/family/POA.
[2023-08-18] MEDS: LACTATED RINGERS 1,000 ML 30 ML IV CONT ×2 (07:59→09:30)
--- NOTE | 2023-08-18 09:20 | W.PM.PROC2 ---
Procedure Note - Detailed Date of Procedure 08/18/23 Pre-op Diagnosis desires sterilization Post-op Diagnosis Same Procedure Performed Laparoscopic bilateral salpingectomy Surgeon Jayshree Morales MD Anesthesia General Findings Normal-appearing tubes and ovaries. Irregularly shaped uterus consistent with intramural fibroids Description of Procedure The patient is taken to the operating room and placed under anesthesia in dorsal lithotomy position. She was prepped and draped in the usual sterile fashion. Bladder was drained with a red rubber catheter. [place] speculum was placed in the vagina and the cervix grasped on the anterior lip with a tenaculum. The acorn manipulator was placed. Attention was then turned to the abdomen where a vertical skin incision was made at the base of the umbilicus. The abdomen is tented and the Veress needle placed. Water drop test is normal. Opening patient pressure is 5mmHg. The pneumoperitoneum was obtained to a patient pressure of 15mmHg. The Veress needle is removed and the 5mm Optiview trocar is placed while tenting the abdomen. Intra-abdominal placement was confirmed via laparoscope. The patient was placed in Trendelenburg and 2 skin incisions were made once left and right of midline above the symphysis pubis. The 5mm trocars were placed under direct visualization. The blunt probe was used to bring the tubes into the surgical field. The right tube was grasped at its fimbriated end and using the LigaSure device the mesosalpinx is cauterized and cut. Approximately 1cm from the cornua the tube was crossclamped, cauterized, and cut. The identical procedure was performed on the right side. There is some bleeding at the peritoneum, at the ovarian edge, and at the cornea. These areas are individually cauterized under direct visualization. The area is irrigated and no bleeding is noted. All instruments were removed and the pneumoperitoneum room to stop. Skin incisions were closed using 4-0 nylon in an interrupted fashion. Vaginal instruments are removed. The patient was awakened from anesthesia and taken to recovery in stable condition. Sponge, needle, and instrument counts are correct per the OR staff. Estimated Blood Loss 5 Drains No Packing No Pathology Yes (Bilateral tubes) Complications No immediate complications Condition Stable Disposition PACU
[2023-08-18] MEDS: ONDANSETRON INJ 4 MG/2 ML VIAL IV PUSH (10:14)
[2023-08-18] MEDS: fentaNYL CITRATE INJ (*CRX) 100 MCG/2 ML VIAL 25 MCG IV PUSH (10:15)
[2023-08-18] MEDS: oxyCODONE HCL (*CRX) 5 MG TAB IR PO (10:58)
== END 2023-08-18 11:40 | disposition home or self-care (01) ==
PROVIDERS: PCP Family Medicine; Visit Provider Obstetrics & Gynecology Gynecology
PROC: (CPT 49320; principal; 2023-08-18 08:30)
DX: Z30.2 Encounter for sterilization (principal); N83.8 Other noninflammatory disorders of ovary, fallopian tube and broad ligament; N70.11 Chronic salpingitis; F41.9 Anxiety disorder, unspecified; K21.9 Gastro-esophageal reflux disease without esophagitis; I10 Essential (primary) hypertension; F12.90 Cannabis use, unspecified, uncomplicated; Z98.82 Breast implant status; Z84.0 Family history of diseases of the skin and subcutaneous tissue
CPT/HCPCS: 58661; 88302; A9270; J1100; J1885; J2250; J2405; J2704; J3010; J7030; J7120

== ENCOUNTER 2023-11-12 07:39 | Outpatient (CLI) | payer BC, SELFPAY ==
--- NOTE | ~2023-11-12 | NM_ITS ---
EXAMINATION: NM hepatobiliary wo pharm DATE: 11/12/2023 11:48 INDICATION: Epigastric pain and atypical chest pain. COMPARISON: None. TECHNIQUE: 5 mCi Tc-99m mebrofenin (Choletec) was administered intravenously. Scintigraphic images o f the abdomen were obtained for one hour. At the 1 hour time point, the patient drank 8 oz Ensure, an d imaging was continued for 60 minutes. Gallbladder ejection fraction was calculated by the technolog ist. FINDINGS: There is normal clearance of radiotracer from the blood pool. There is homogeneous tracer u ptake by the liver. Activity progresses to the bowel and gallbladder. The gallbladder ejection fract ion (GBEF) is 66%. Note that with this technique, normal GBEF >= 33%. IMPRESSION: 1. Normal hepatobiliary scan Reviewed, dictated and finalized at location A. 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
== END 2023-11-12 07:40 | disposition home or self-care (01) ==
PROVIDERS: PCP Family Medicine; Visit Provider Nurse Practitioner
DX: R07.89 Other chest pain (principal); R10.13 Epigastric pain
CPT/HCPCS: 78226; A9537

== ENCOUNTER 2024-01-07 23:57 | Emergency (ER) | payer BC, SELFPAY ==
--- NOTE | ~2024-01-07 | XR_ITS ---
Portable chest x-ray Comparison: 06/21/2023 Clinical History: Chest pain Findings: Lungs are clear, without focal consolidation or pleural effusion. Cardiomediastinal silho uette is stable. Bones and soft tissues are unremarkable. Impression: Normal chest. Reviewed, dictated and finalized at [facility]. Impression: Normal chest.
[2024-01-07 23:57] VITALS: BP 143/98; PULSE 96; RESP 15; TEMP 36.7; O2SAT 97
--- NOTE | 2024-01-08 | ECG_ITS ---
SEE SCANNED COPY FOR CONFIRMED REPORT MTDD
[2024-01-08 00:02] VITALS: O2SAT 100
[2024-01-08 00:03] VITALS: PULSE 96
[2024-01-08 00:05] VITALS: O2SAT 100
[2024-01-08] MEDS: ASPIRIN 81 MG CHEWABLE TABLET 324 MG PO (00:05)
[2024-01-08 00:08] LABS: Basophils Percent Auto 0.3 % (0.2-1.2); Eosinophils Absolute Auto 0.2 K/mm3 (0-0.3); Eosinophils Percent Auto 2.1 % (0-4.4); Hematocrit 42.3 % (37.0-47.0); Hemoglobin 14.3 g/dL (12.0-15.0); Immature Granulocyte Absolute 0.03 K/mm3 (0.00-0.031); Immature Granulocyte Percent A 0.3 % (0-0.5); Lymphocytes Absolute Auto 3.03 K/mm3 (0.9-3.2); Mean Corpuscular HGB Conc 33.8 g/dl (32-36); Mean Corpuscular Hemoglobin 28.7 pg (26-34); Mean Corpuscular Volume 84.8 fl (80-100); Neutrophils Absolute Auto 4.9 K/mm3 (1.3-6.7); Neutrophils Percent Auto 53.3 % (45.5-73.1); Platelet Count Result 316 k/mm3 (150-375); Red Blood Count 4.99 M/mm3 (4.2-5.4); Red Cell Distribution Width 12.1 % (11.5-14.5); White Blood Count 9.2 K/mm3 (4.5-10.0)
[2024-01-08 00:18] LABS: Alanine Aminotransferase 108 U/L (6-35); Albumin Level 4.5 g/dL (3.5-5.1); Alkaline Phosphatase 78 U/L (38-126); Anion Gap 8 mmol/L (4-12); Aspartate Amino Transferase 44 U/L (14-36); Bilirubin,Total 0.5 mg/dL (0.2-1.3); Blood Urea Nitrogen 14 mg/dL (7-17); Calcium 9.6 mg/dL (8.4-10.2); Carbon Dioxide 23 mmol/L (22-30); Chloride 110 mmol/L (98-107); Estimated CRCL calculation 72 ml/min; Estimated Glomerular Filt Rate > 60; Glucose 106 mg/dL (65-110); Lipase 187 U/L (23-300); Sodium 141 mmol/L (137-145)
[2024-01-08 00:19] LABS: Prothrombin Time 13.1 Seconds (11.1-14.7)
[2024-01-08] MEDS: PANTOPRAZOLE SODIUM IV 40 MG VIAL IV PUSH (00:19)
[2024-01-08 00:20] LABS: Partial Thromboplastin Time 31.3 Seconds (22.3-36.8)
[2024-01-08 00:22] VITALS: BP 130/88; PULSE 85; RESP 13; O2SAT 97
--- NOTE | 2024-01-08 00:22 | PC.NURSE ---
Patient states that she took 40mg Pepcid last night at 2200. Per EDP Dr. Vasquez hold of on the 20mg famotidine.
[2024-01-08 00:30] LABS: Troponin I < 0.012 ng/mL (0.000-0.034)
--- NOTE | 2024-01-08 00:30 | ED.ARRPALP ---
HPI - Arrhythmia/Palpitations General Chief Complaint: Arrhythmia/Palpitations Stated Complaint: PALPITATIONS, BURNING IN HER THROAT Time Seen by Provider: 01/08/24 00:06 History of Present Illness HPI narrative: Patient has history of GERD, anxiety, presents here after she woke up with a sensation of burning that came up her chest and into her throat, she became extremely anxious, thinks that she does her hyperventilating, and had palpitations with heart rate in the 130s, and sensation of tingling down her arms/hands. She did have a late dinner and went to sleep right after having tacos. Related Data Home Medications Medication Instructions Recorded Confirmed ergocalciferol (vitamin D2) 1,250 50,000 unit PO DIRECTED 06/08/20 01/06/24 mcg (50,000 unit) capsule (Vitamin D2) amlodipine 10 mg tablet 5 mg PO HS 08/06/23 01/06/24 ondansetron HCl 4 mg tablet See Rx Instructions .Route 08/06/23 01/06/24 .COMPLEX PRN Nausea And Vomiting medroxyprogesterone 150 mg/mL 150 mg IM [id number] 01/06/24 01/06/24 intramuscular syringe (Depo-Provera) Allergies Allergy/AdvReac Type Severity Reaction Status Date / Time No Known Allergies Allergy Unknown Verified 01/06/24 08:50 Review of Systems Review of Systems: CONST: No fever. HEENT: Abscess/burning to throat C/V: Palpitations RESP: No cough GI: Reports epigastric pain : No dysuria. M/S: No joint pain. SKIN: No rash. NEURO: [No headache ; tingling/burning sensation bilateral arms to hands] PSYCH: Anxiety PMFSH Past Medical History Medical History Anxiety Constipation GERD (gastroesophageal reflux disease) History of breast implant removal Hypertension Internal hemorrhoid Nonerosive esophageal reflux disease (normal spontaneous vaginal delivery) Surgical History Surgical History H/O breast augmentation (~2013) History of hysteroscopy Hx of appendectomy Tubal ligation status Family History Family History Mother Hypertension Hyperlipidemia Father Hypertension Hyperlipidemia Grandparent Hyperlipidemia Hypertension Skin cancer Esophageal cancer Grandparent Arthritis Social History Social History Smoking status: Never smoker Second hand tobacco smoke exposure: No Alcohol intake: never Alcohol use details: 3 per year Substance use: never Substance use type: marijuana Other substance usage details: OCCAS. 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 EYES: EOMI, conjunctiva normal ENT: Hearing grossly intact LUNGS: Nonlabored breathing. HEART: [Regular rate and rhythm] ABD: [Soft], [nontender to palpation] EXT: Normal range of motion SKIN: [No rashes or lesions.] NEURO: [Alert and oriented x 3. No gross focal sensory or strength deficits. No facial asymmetry. Clear speech, normal gait.] PSYCH: Slightly anxious affect Course Vital Signs Vital signs: Vital Signs Temperature 98.1 F 01/07/24 23:57 Pulse Rate 96 01/07/24 23:57 Respiratory Rate 15 01/07/24 23:57 Blood Pressure 143/98 H
[2024-01-08] MEDS: MAG HYDROX/AL HYDROX/SIMETH 30 ML UDC PO (00:41)
== END 2024-01-08 00:57 | disposition home or self-care (01) ==
PROVIDERS: Emergency Provider Emergency Medicine; PCP Family Medicine
DX: R00.2 Palpitations (principal); R10.13 Epigastric pain; I10 Essential (primary) hypertension; K21.9 Gastro-esophageal reflux disease without esophagitis; F41.9 Anxiety disorder, unspecified; R94.31 Abnormal electrocardiogram [ECG] [EKG]
CPT/HCPCS: 36415; 71045; 80053; 83690; 84484; 85025; 85610; 85730; 93005; 96374; 99284; A9270; C9113

== ENCOUNTER 2024-01-17 09:30 | Outpatient (CLI) | payer BC, SELFPAY ==
--- NOTE | ~2024-01-17 | US_ITS ---
US abdomen limited DATE: 01/17/2024 10:02 INDICATION: Abnormal liver function tests TECHNIQUE: Real-time imaging of the liver, pancreas, gallbladder COMPARISON: November 12, 2023 hepatobiliary scan, reported normal / right upper quadrant abdominal ultrasound, no significant abnormality reported FINDINGS: No hepatic or pancreatic space-occupying mass lesion is evident. Normal hepatopedal portal venous flow direction. No gallstones or gallbladder wall thickening or abnormal pericholecystic fluid collection. Negative s onographic Zuluaga's sign. Common bile duct measures 2 mm, normal. IMPRESSION: Negative Reviewed, dictated and finalized at [facility]. Reviewed, dictated and finalized at location A. IMPRESSION: Negative
[2024-01-17 10:46] LABS: Alanine Aminotransferase 24 U/L (6-35); Albumin Level 4.5 g/dL (3.5-5.1); Alkaline Phosphatase 64 U/L (38-126); Aspartate Amino Transferase 22 U/L (14-36); Bilirubin,Total 0.6 mg/dL (0.2-1.3)
[2024-01-17 12:41] LABS: Hepatitis B Surface Antigen Negative (Negative)
[2024-01-17 12:46] LABS: HAV RESULT Negative (Negative); Hepatitis B Core IgM Result Negative (Negative)
[2024-01-17 12:58] LABS: Hepatitis C Virus Antibody Negative (Negative)
== END 2024-01-17 09:31 | disposition home or self-care (01) ==
PROVIDERS: PCP Family Medicine; Visit Provider Physician Assistant
DX: R79.89 Other specified abnormal findings of blood chemistry (principal)
CPT/HCPCS: 36415; 76705; 80074; 80076

== ENCOUNTER 2025-04-22 08:36 | Outpatient (CLI) | payer BC, SELFPAY ==
--- NOTE | ~2025-04-22 | MMUS_ITS ---
EXAMINATION: MM diagnostic héctor BI w jeanine, US breast BI complete HISTORY: Palpable left breast lump TECHNIQUE: Additional 3-D tomosynthesis images of the breasts were performed and synthetic 2-D images were generated. CAD analysis was submitted and interpreted. High resolution bilateral complete breas t ultrasound was performed. COMPARISON: 06/23/2019 BREAST PARENCHYMAL COMPOSITION: Dense: The breasts are heterogeneously dense, which may obscure small masses FINDINGS: MAMMOGRAPHIC FINDINGS: There are focal asymmetries in the upper outer quadrant of the right breast, middle third. No discret e mass or architectural distortion. No evidence for malignancy in the left breast. ULTRASOUND: Complete US of all 4 quadrants of the breast/s and retroareolar region was reviewed. Right breast: At 10:00, 7 cm from the nipple there is an oval hypoechoic mass with slightly heterogen eous internal echotexture measuring 9 x 8 x 5 mm, likely corresponding to the mammographic finding. N o internal vascularity or posterior features. Left breast: Normal heterogeneous echotexture without focal solid or cystic mass. IMPRESSION: 1. Suspicious right breast mass at 10:00, 7 cm from the nipple measuring 9 mm. No evidence for malign fausto in the left breast. 2. Ultrasound-guided right breast biopsy recommended. BI-RADS category 4, suspicious findings. Reviewed, dictated and finalized at location [] IMPRESSION: 1. Suspicious right breast mass at 10:00, 7 cm from the nipple measuring 9 mm. No evidence for malignancy in the left breast. 2. Ultrasound-guided right breast biopsy recommended. BI-RADS category 4, suspicious findings.
== END 2025-04-22 08:37 | disposition home or self-care (01) ==
LOC: MICIMG 08:37
PROVIDERS: PCP Family Medicine; Visit Provider Nurse Practitioner
DX: N63.11 Unspecified lump in the right breast, upper outer quadrant (principal)
CPT/HCPCS: 76641; 77062; 77066; G0279

== ENCOUNTER 2025-05-09 08:25 | Outpatient (CLI) | payer BC, SELFPAY ==
--- NOTE | ~2025-05-09 | US_ITS ---
EXAMINATION: US thyroid DATE: 05/09/2025 08:44 INDICATION: Goiter TECHNIQUE: Multiple ultrasound images of the thyroid were obtained. COMPARISON: None. FINDINGS: The right thyroid lobe measures 3.7 x 1.4 x 1.4 cm. The left thyroid lobe measures 4.4 x 1.3 x 1.6 c m. Subtle 1.2 x 1.0 x 0.9 cm isoechoic wider than tall solid nodule with smooth to ill-defined cruz ns and without echogenic foci in the right thyroid lobe (TI-RADS 4, moderately suspicious , FNA if >= 1.5 cm, annual followup is >=1 cm). No other thyroid nodules identified. There is normal echotexture, echogenicity and vascular flow throughout the thyroid gland. IMPRESSION: 1. 1.2 cm TI RADS 4 right thyroid nodule for which annual ultrasound follow-up would be recommended. Reviewed, dictated and finalized at location A.
== END 2025-05-09 08:26 | disposition home or self-care (01) ==
PROVIDERS: PCP Family Medicine; Visit Provider Internal Medicine
DX: E05.90 Thyrotoxicosis, unspecified without thyrotoxic crisis or storm (principal); I10 Essential (primary) hypertension; E04.1 Nontoxic single thyroid nodule
CPT/HCPCS: 76536

== ENCOUNTER 2025-06-30 09:27 | Outpatient (CLI) | payer BC, SELFPAY ==
--- NOTE | ~2025-06-30 | US_ITS ---
EXAMINATION: US FNA w image guidance DATE: 06/30/2025 10:30 INDICATION: 1.2 cm TI RADS 4 right thyroid nodule TECHNIQUE: A time-out was performed to verify the patient's name, date of , and procedure to be performed. The procedure and its benefits and risks were discussed with the patient. Risks specifically discussed included bleeding and infection. The patient understood the risks and agreed to proceed. The neck was prepped and draped in the usual sterile manner. 2 mL 1% lidocaine was used for local anesthesia. 5 passes were made with a 25G needle into the lesion. Appropriate needle location was documented with continuous sonographic guidance. A sterile bandage was applied. There were no immediate complications. FINDINGS: Grayscale ultrasound images demonstrate a very subtle isoechoic region at the medial mid right thyroid lobe which appears nodular on the longitudinal imaging but is unable be clearly distinguished on the transverse imaging suggesting the nodular appearance may be artifactual. Subsequent images demonstrate biopsy needles advanced into the region of concern. IMPRESSION: 1. Successful ultrasound-guided fine needle aspiration of the region of concern in the mid right thyroid lobe which on real-time imaging appears more isoechoic and on the previously obtained images and difficult to distinguish from the surrounding thyroid. This could represent a 1.3 cm TI RADS 3 nodule or normal thyroid with artifactual nodular appearance on the longitudinal imaging. Reviewed, dictated and finalized at location A. IMPRESSION: 1. Successful ultrasound-guided fine needle aspiration of the region of concer n in the mid right thyroid lobe which on real-time imaging appears more isoecho ic and on the previously obtained images and difficult to distinguish from the surrounding thyroid. This could represent a 1.3 cm TI RADS 3 nodule or normal t hyroid with artifactual nodular appearance on the longitudinal imaging.
--- NOTE | 2025-06-30 10:24 | CY_PTH ---
PATIENT: Kate Solis LOC: [facility] U#:[id number] AGE/SX: 40/F ROOM: RE06/30/[address]: Luciano Rivera MD : [id number] BED: DIS: 06/30/2025 SPEC #: [id number] RECD: 06/30/25 11:31 STATUS: ANGEL LUIS REQ #: [id number] RIP: 06/30/25 10:[address]: Luciano Rivera DEPT: [facility] Cytology RECD BY: Tiffanie Malcolm MLT, ([facility]) ENTERED: 06/30/25 11:32 SP TYPE: Cytology OTHR DR: Lola Waller, Tissues: A - FNA Thyroid Procedures: Hematoxylin and Eosin Stain Cell Block Fine Needle Aspiration Evaluation Fna Additional Pass Fine Needle Aspiration Pathologist
== END 2025-06-30 09:28 | disposition home or self-care (01) ==
PROVIDERS: PCP Family Medicine; Visit Provider Internal Medicine
DX: E04.1 Nontoxic single thyroid nodule (principal)
CPT/HCPCS: 10005; 88172; 88173; 88177; 88305

== ENCOUNTER 2025-08-26 08:11 | Outpatient (CLI) | payer BC, SELFPAY ==
--- NOTE | ~2025-08-26 | US_ITS ---
ULTRASOUND ABDOMEN LIMITED (RIGHT UPPER QUADRANT) Clinical History: R74.8 - Abnormal levels of other serum enzymes Comparison: Ultrasound 01/17/2024 Technique: Right upper quadrant sonography Findings: Liver: Normal size. Normal echotexture. No intrahepatic biliary ductal dilatation. Normal hepatopedal flow main portal vein. Common Duct: Normal caliber. 3 mm. Gallbladder: No stones. No wall thickening. No pericholecystic fluid. Pancreas: Unremarkable. IMPRESSION: 1. No acute findings. Reviewed, dictated and finalized at location R. K DESPATCHER IMPRESSION: 1. No acute findings.
[2025-08-26 09:47] LABS: Immunoglobulin G 1174 mg/dL (700-1600)
[2025-08-26 09:53] LABS: INR 1.0; Prothrombin Time 13.4 Seconds (11.1-14.7)
[2025-08-26 10:02] LABS: Iron 140 ug/dL (37-170)
[2025-08-26 10:12] LABS: Percent Iron Saturation 48 % (20-50)
[2025-08-26 10:21] LABS: Hepatitis B Surface Antigen Negative (Negative)
[2025-08-26 10:25] LABS: Ferritin 79.40 ng/mL (6.24-137)
[2025-08-26 10:27] LABS: HAV RESULT Negative (Negative); Hepatitis B Core IgM Result Negative (Negative)
[2025-08-26 10:39] LABS: Hepatitis B Surface Anti Res Negative
[2025-08-27 05:08] LABS: Hep A Ab, Total Positive (Negative); Hep B Core Ab, Total Negative (Negative)
[2025-08-30 10:09] LABS: ANA by IFA Rfx Titer/Pattern Negative (.)
[2025-08-30 15:09] LABS: ALT (SGPT) P5P 38 IU/L (0-40); AST (SGOT) P5P 28 IU/L (0-40); Alpha 2-Macroglobulins, Qn 294 mg/dL (110-276); Bilirubin, Total 0.4 mg/dL (0.0-1.2); Cholesterol, Total 239 mg/dL (100-199); GGT 38 IU/L (0-60); Glucose 86 mg/dL (70-99); Triglycerides 134 mg/dL (0-149)
== END 2025-08-26 08:12 | disposition home or self-care (01) ==
PROVIDERS: PCP Family Medicine; Visit Provider Nurse Practitioner
DX: R74.8 Abnormal levels of other serum enzymes (principal)
CPT/HCPCS: 36415; 76705; 80074; 82103; 82172; 82247; 82390; 82465; 82728; 82784; 82947; 82977; 83010; 83540; 83550; 83883; 84450; 84460; 84478; 85610; 86015; 86038; 86376; 86381; 86704; 86706; 86708